=== PATIENT | male | born 1935 | race Caucasian/White ===

== ENCOUNTER 2021-07-31 20:07 | Emergency (ER) | payer MEDICARE, MEDICAID, SELFPAY ==
[2021-07-31 20:12] VITALS: BP 138/77; PULSE 109; RESP 22; TEMP 37.4; O2SAT 86; BMI 32.5
--- NOTE | 2021-07-31 20:22 | W.ED.GENADLT ---
HPI - General Adult General: Chief complaint: Urogenital-Male Stated complaint: PENILE ISSUES, CAN'T URINATE Time Seen by Provider: 07/31/21 20:11 History of Present Illness: HPI narrative: Patient is an 86-year-old male with history of diabetes not on medication presents emergency room with 3 days of urinary burning and incontinence. Call EMS was brought to the emergency room for evaluation. Patient denies any fever/chills, flank pain, abdominal pain, nausea/vomiting, hematochezia/melena, or hematuria. Onset:3 days ago Duration:3 days Location:home Severity:moderate Associated symptoms: Deny chest pain, dyspnea, nausea, rash, palpitations or vomiting Review of Systems Const: Denies: fever(s) or chills Eyes: Denies: change in vision ENMT: Denies: mouth pain Card: Denies: chest pain or palpitations Resp: Denies: dyspnea or non-productive cough GI: Denies: abdominal pain, nausea, vomiting or diarrhea : Denies: dysuria Musc: Denies: extremity pain Skin/Breast: Denies: rash or new lesions Neuro: Denies: weakness in extremities Psych: Reports: other (Normal mood) Carson/Lymph: Denies: easy bruising Physical Exam Const: COMMON NORMALS: alert HENMT: COMMON NORMALS: atraumatic HEAD & SCALP: atraumatic MOUTH: moist mucous membranes not abnormal Eye: COMMON NORMALS: EOMs intact bilaterally and conjunctivae normal CONJUNCTIVA: Yes conjunctivae normal Neck/C-Spine: COMMON NORMALS: full ROM and supple Resp: COMMON NORMALS: normal respiratory effort and clear to auscultation bilaterally AUSCULTATION: clear to auscultation bilaterally Cardio: COMMON NORMALS: regular rate RATE: regular rate GI: COMMON NORMALS: Soft to palpation and non-tender PALPATION: Yes Soft to palpation : OTHER: White pasty substance noted on the glans and foreskin. No erythema, crepitus, induration, or tenderness to palpation. No testicular tenderness to palpation. Extremity: COMMON NORMALS: full ROM Neuro: SENSORIUM/ORIENTATION: Yes alert MOTOR EXAM: No Abnormal motor strength present and Other motor observations present (no focal motor deficits) Psych: COMMON NORMALS: speech normal SPEECH: Yes normal speech MOOD & AFFECT: Yes euthymic mood Course Vital Signs: Vital signs: Vital Signs Temperature 99.4 F 07/31/21 20:12 Pulse Rate 109 H 07/31/21 20:12 Respiratory Rate 22 H 07/31/21 20:12 Blood Pressure 138/77 07/31/21 20:12 Pulse Oximetry 87 L 07/31/21 22:40 MDM - General Adult MDM Narrative: Medical decision making narrative: Patient is an 86-year-old male presents emergency room with concerns for dysuria and urinary incontinence. On exam, patient is found to have white plaques on the forehead and the penile glans consistent with possible balanoposthitits and UTI. Workup: CBC, BMP, UA/ UCX Intervention: IV ceftriaxone On reassessment, patient is noted to have a white count of 18.8. Patient received ceftriaxone for empiric coverage of UTI. Findings on physical exam is consistent with possible balanopoisthitis. Suspicion of pyelonephritis the patient does not have any flank tenderness palpation. No suspicion for necrotizing infection/Jose Angel gangrene of the groin as patient does not have any focal tenderness to palpation, crepitus, induration, fluctuance in the perineum other than penile glans and foreskin involvement. I have discussed case with Dr. Carpenter who will evaluate patient in clinic for both this week. Rx Clotrimazole 1% applied topically to glans q12hrs until resolution and cephalexin BID 500mg for UTI Patient was also noted to have be mildly hypoxemic to 87% on room air that improved to 94-95% on 2 L. I performed her home oxygen evaluation. Patient qualifies for 2 L oxygen and will be discharged home with oxygen. X-ray chest showed no focal findings. Given finding, I have given patient close follow-up with outpatient Pulmonology for further evaluation of hypoxemia. Patient denies any dyspnea at rest, chest pain, and has no shortness of breath with exertion. Covid swab pending. Patient has a pulse ox to go home with. I have given patient follow up with our classification case manager to be seen by Dr. Christie or [place] for increased oxygen requirement. Patient aware of a call from our classification case manager to schedule for appointment(s) and verbalizes understanding of the importance of following up. I have given patient follow up with our classification case manager to be seen by Dr. Carpenter. Patient aware of a call from our classification case manager to schedule for appointment(s) and verbalizes understanding of the importance of following up. Disposition: Discharge. Patient counseled regarding diagnostic impression, treatment plan. Patient given ED strict return precautions to return for continuation, worsening, or development of new symptoms. Instructed to f/u w/ PCP and Dr. Carpenter regarding symptoms today. Patient verbalized understanding. Lab Data: Labs: Lab Results 07/31/21 07/31/21 19:27 19:27 WBC 18.7 10^3/uL H 10 ^3/uL (4.0-10.0) RBC 5.60 10^6/uL H 10 ^6/uL (4.1-5.3) Hgb 16.8 g/dL H g/dL (11.7-16.6) Hct 51.4 % % (42.0-52.0) MCV 91.8 fl fl (80-94) MCH 30.0 pg pg (28.0-34.0) MCHC 32.7 g/dL g/dL (30.0-36.0) RDW 12.2 % % (12.1-15.1) Plt Count 181 10^3/cmm 10^3 /cmm (130-400) MPV 11.9 fL H fL (7.4-10.4) Neut % (Auto) 81.1 % % Lymph % (Auto) 8.5 % % [place] % (Auto) 9.5 % % Eos % (Auto) 0.1 % % Baso % (Auto) 0.3 % % Neut # (Auto) 15.20 10^3/uL H 1 0^3/uL (1.8-7.7) Lymph # (Auto) 1.6 10^3/uL 10^3/ uL (0.8-4.8) [place] # (Auto) 1.8 10^3/uL H 10^ 3/uL (0.2-0.9) Eos # (Auto) 0.0 10^3/uL 10^3/ uL (0.0-0.8) Baso # (Auto) 0.1 10^3/uL 10^3/ uL (0.0-0.1) Nucleated RBC % (a uto) 0 % % Nucleated RBCs # 0.0 /100WBC /100W BC Sodium 137 mmol/L mmol/L (136-145) Potassium 4.7 mmol/L mmol/L (3.5-5.1) Chloride 100 mmol/L mmol/L (98-107) Carbon Dioxide 23 mmol/L mmol/L (22-29) Anion Gap 18.7 (5-19) BUN 33 mg/dL H mg/dL (8-23) Creatinine 1.4 mg/dL H mg/dL (0.7-1.2) GFR Calculation Not Reportable Glucose 163 mg/dL H mg/dL (65-115) Calculated Osmolal ity 295 mOsm/kg mOsm/ kg (285-295) Calcium 8.8 mg/dL mg/dL (8.5-10.5) Imaging Data^: Other Imaging: Radiologist's impression: [facility] [id number] ReportSigned Patient: Jaky Jalloh #: [id number]: 1935cct#:[id number]/Sex: 86 / MADM Date: 07/31/21Loc: ERRoom/Bed:Attending Dr: Ordering Provider/Ordering MD: Jr Mccurdy MD Date of Service: 07/31/21 Procedure(s): XR chest 1V portable [id number] Accession Number(s): [id number] Report Number: [id number] PROCEDURE INFORMATION: Exam: XR Chest Exam date and time: 07/31/2021 10:17 PM Age: 86 years old Clinical indication: Shortness of breath; Additional info: Dyspnea TECHNIQUE: Imaging protocol: XR of the chest. Views: 1 view. COMPARISON: CR Chest 1 [place] [id number] 10/09/2018 8:01 PM FINDINGS: Lungs: Mild atelectasis in the lung bases. The lungs are otherwise clear. Pleural spaces: Small right pleural effusion. No pneumothorax. Heart/Mediastinum: Unremarkable. No cardiomegaly. Diaphragm: Stable chronic elevation of the right diaphragm. Bones/joints: Unremarkable. XR/XR chest 1V portable [id number] IMPRESSION: No acute finding. Dictated By:Padma Trevino By:Padma Trevino Date/Time:07/31/21 [id number]/ 16 Discharge Plan Discharge Patient Disposition: Home Clinical Impression: Balanoposthitis, Acute UTI Condition: Stable Prescriptions: New acetaminophen 500 mg tablet 500 mg PO Q6H PRN (Reason: pain) 5 Days Qty: 20 RF: 0 cephalexin 500 mg capsule 500 mg PO BID 7 Days Qty: 14 RF: 0 Antifungal (clotrimazole) 1 % cream 1 applic topical BID 28 Days Qty: 45 RF: 0 Discharge Orders: Discharge ED (Routine); Ordered 07/31/21 Ordered By: Jr Mccurdy Other Ambulatory Orders: DME: Oxygen (Order) Location: None Selected Ordered By: Jr Mccurdy Discharge Diet: Advance as tolerated Discharge Activity: Resume usual activity Patient Instructions: Balanitis (ED), Dysuria (ED) Activity Restrictions/Additional Instructions: Our classification case manager will have you follow-up with Dr. Carpenter in the next few days. You would be expected to have a phone call with our classification case manager who will put you on the schedule. Please take your antibiotics as instructed. Watch out for signs of skin changes/redness, mouth redeness or swelling, nausea/vomiting, diarrhea, blood in the urine or any new or concering complaints Come back to the emergency room have any fever or chills, nausea/vomiting, flank pain, worsening symptoms, or any new or concerning complaints Please return the emergency room if your pulse ox reads less than 88%. Our classification case manager will have you follow-up with pulmonology in the next few days for low oxygen. You would be expected to have a phone call with our classification case manager who will put you on the schedule. Coding Level of Care Code ED Consumer Safety Inspector for Art Ness Exam Comprehensive
[2021-07-31 20:28] LABS: Basophils # 0.1 10^3/uL (0.0-0.1); Basophils % 0.3 %; Eosinophils % 0.1 %; Hematocrit 51.4 % (42.0-52.0); Hemoglobin 16.8 g/dL (11.7-16.6); Lymphocytes # 1.6 10^3/uL (0.8-4.8); Lymphocytes % 8.5 %; Mean Corpuscular HGB Conc 32.7 g/dL (30.0-36.0); Mean Corpuscular Volume 91.8 fl (80-94); Mean Platelet Volume 11.9 fL (7.4-10.4); Monocytes # 1.8 10^3/uL (0.2-0.9); Monocytes % 9.5 %; Neutrophils % 81.1 %; Nucleated Red Blood Cells % 0 %; Platelet Count 181 10^3/cmm (130-400); Red Cell Distribution Width 12.2 % (12.1-15.1); White Blood Count 18.7 10^3/uL (4.0-10.0)
[2021-07-31] MEDS: cefTRIAXone 1,000 MG in sodium chloride 0.9% (plus) 50 ML 100 MG IV (20:43)
[2021-07-31 21:04] LABS: Anion Gap 18.7 (5-19); Blood Urea Nitrogen 33 mg/dL (8-23); Calcium 8.8 mg/dL (8.5-10.5); Carbon Dioxide 23 mmol/L (22-29); Chloride 100 mmol/L (98-107); Glucose 163 mg/dL (65-115); Osmolality Calculated 295 mOsm/kg (285-295); Potassium 4.7 mmol/L (3.5-5.1); Sodium 137 mmol/L (136-145)
--- NOTE | 2021-07-31 22:17 | XRR_ITS ---
PROCEDURE INFORMATION: Exam: XR Chest Exam date and time: 07/31/2021 10:17 PM Age: 86 years old Clinical indication: Shortness of breath; Additional info: Dyspnea TECHNIQUE: Imaging protocol: XR of the chest. Views: 1 view. COMPARISON: CR Chest 1 [place] [id number] 10/09/2018 8:01 PM FINDINGS: Lungs: Mild atelectasis in the lung bases. The lungs are otherwise clear. Pleural spaces: Small right pleural effusion. No pneumothorax. Heart/Mediastinum: Unremarkable. No cardiomegaly. Diaphragm: Stable chronic elevation of the right diaphragm. Bones/joints: Unremarkable. XR/XR chest 1V portable [id number] IMPRESSION: No acute finding.
[2021-07-31 22:30] VITALS: BP 109/66; PULSE 76; RESP 24; O2SAT 95
[2021-07-31 22:40] VITALS: O2SAT 87
[2021-07-31 23:00] VITALS: BP 124/61; O2SAT 95
[2021-07-31 23:30] VITALS: BP 119/67; O2SAT 93
[2021-08-01] VITALS: BP 140/88; O2SAT 96
[2021-08-01 01:29] LABS: Adenovirus Not Detected (NOT DETECT); Chlamydia Pneumoniae Not Detected (NOT DETECT); Coronavirus 229E,HKU1,NL63,OC4 Not Detected (NOT DETECT); Human Metapneumovirus Not Detected (NOT DETECT); Human Rhinovirus/Enterovirus Not Detected (NOT DETECT); Influenza A Not Detected (NOT DETECT); Influenza A H1 Not Detected (NOT DETECT); Influenza A H1-2009 Not Detected (NOT DETECT); Influenza A H3 Not Detected (NOT DETECT); Influenza B Not Detected (NOT DETECT); Mycoplasma Pneumoniae Not Detected (NOT DETECT); Parainfluenza Virus Type 1 Not Detected (NOT DETECT); Parainfluenza Virus Type 2 Not Detected (NOT DETECT); Parainfluenza Virus Type 3 Not Detected (NOT DETECT); Parainfluenza Virus Type 4 Not Detected (NOT DETECT); Respiratory Syncytial Virus A Not Detected (NOT DETECT); Respiratory Syncytial Virus B Not Detected (NOT DETECT); SARS-COV-2 Not Detected (NOT DETECT)
[2021-08-01 01:45] VITALS: BP 140/88; O2SAT 96
--- NOTE | 2021-08-01 06:33 | DCPLANNER ---
manager background had message to schedule a follow up appointment for patient with Dr. Carpenter. manager background emailed patients information to Frederick Bell and Julie at the office of Dr. Carpetner. Patients information will be printed and reviewed. Clinic will call patient with appointment information.
--- NOTE | 2021-08-03 08:06 | DCPLANNER ---
Addendum entered by Oneida Plata 08/24/21 11:04: Patient had a follow up appointment scheduled with Dr. Carpenter - appointment was rescheduled for 09.07.21. Original Note: Patient has a follow up appointment scheduled for Tuesday, August 17, 2021 at 11:[address] Carpenter. Clinic will call patient with appointment information.
--- NOTE | 2021-08-03 10:55 | DCPLANNER ---
Addendum entered by Oneida Plata 09/14/21 13:27: Patient had a follow up appointment scheduled with Dr. Carpenter - patient did not attend appointment. Addendum entered by Oneida Plata 09/14/21 10:16: Patient had a follow up appointment scheduled for 08.30.21 with Pulmonology - patient did not attend appointment. Original Note: assistant portfolio manager had message to schedule a follow up appointment for patient with heart care. assistant portfolio manager called [facility], spoke with Emily Benitez, gave clinic patients information. A follow up appointment was scheduled for August at 9:[address] Lawson. assistant portfolio manager called patient and gave patient the appointment information.
== END 2021-08-01 01:30 | disposition home or self-care (01) ==
PROVIDERS: Emergency Provider Emergency Medicine
DX: N47.6 Balanoposthitis (principal); N39.0 Urinary tract infection, site not specified; Z20.822 Contact with and (suspected) exposure to COVID-19
CPT/HCPCS: 71045; 80048; 85025; 87635; 96365; 99284; J0696

== ENCOUNTER 2021-08-11 19:12 | Emergency (ER) | payer MEDICARE, MEDICAID, SELFPAY ==
[2021-08-11 19:24] VITALS: BP 157/68; PULSE 94; RESP 14; TEMP 36.6; O2SAT 94; BMI 31.8
[2021-08-11 19:56] LABS: Add Urine Microscopic? NO; Charge for UA Resulting for Rev
[2021-08-11 20:06] LABS: Bilirubin Urine Neg (Negative); Blood Urine Neg (Negative); Glucose Urine UA Norm (Normal); Ketones Urine Negative (Negative); Leukocyte Esterase Urine Negative (Negative); Nitrate Urine Negative (Negative); Protein Urine Neg (Negative); Urine Appearance Clear (CLEAR); Urine Color Yellow (Yellow); Urobilinogen Urine Norm (Negative); pH Urine 6 (5-7)
--- NOTE | 2021-08-12 00:02 | W.ED.GENADLT ---
HPI - General Adult General: Chief complaint: General Medical Stated complaint: UTI/ GENERAL WEAKNESS Time Seen by Provider: 08/11/21 23:26 History of Present Illness: HPI narrative: Patient is a 86-year-old male who comes to the ED via EMS for UTI symptoms. Patient says at home he uses an electric wheelchair to get around is able to do transfers from wheelchair to bed himself. 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 For the past 11 days he has had UTI symptoms of burning when he urinates and increased urine frequency. He was seen here in the ED back on July 31 for same complaint. He was diagnosed with balanoposthitis and a UTI. He was discharged home with a prescription for cephalexin and clotrimazole cream. he had some lower oxygen levels as well and was sent him home on 2L of O2 continuously. Patient says he has not been using the oxygen at home. Patient took his prescribed meds and is still having some dysuria and increased urine frequency. He describes having to urinate sometimes multiple times in an hour. Denies any other symptoms such as generalized weakness, fever, chills, chest pain, shortness of breath, abdominal pain, nausea/vomiting, bowel symptoms or hematuria. Patient was also referred to the urologist Dr. Carpenter. Associated symptoms: Deny chest pain, dyspnea, headache(s), nausea, rash, palpitations or vomiting Review of Systems Const: Denies: fever(s), chills or fatigue Eyes: Denies: change in vision or eye discomfort ENMT: Denies: throat pain, odynophagia, nasal discharge or nasal congestion Card: Denies: chest pain, palpitations, edema, swelling of feet/ankles, dyspnea on exertion or orthopnea Resp: Denies: dyspnea, productive cough or non-productive cough GI: Denies: abdominal pain, nausea, vomiting, diarrhea, constipation or hematochezia : Reports: dysuria (Burning pain when urinating) and urinary frequency; Denies: flank pain, difficulty urinating or hematuria Musc: Denies: neck pain, back pain or extremity swelling Skin/Breast: Denies: rash or new lesions Neuro: Denies: headache(s), numbness in extremities or weakness in extremities PFS ED PFSH: Medical History Hypoxemia No pertinent family history On home oxygen therapy Physical Exam Const: COMMON NORMALS: no acute distress, patient oriented x3 and alert GENERAL APPEARANCE: cooperative and comfortable HENMT: COMMON NORMALS: normocephalic HEAD & SCALP: normocephalic MOUTH: Normal oral and palatal mucosa present THROAT: posterior oropharynx normal and uvula midline Neck/C-Spine: COMMON NORMALS: supple GENERAL: Yes normal visual inspection Resp: COMMON NORMALS: normal respiratory effort, No retractions, No use of accessory muscles and clear to auscultation bilaterally AUSCULTATION: clear to auscultation bilaterally Cardio: COMMON NORMALS: regular rate, regular rhythm, S1 normal heart sound present, S2 normal heart sound present, No gallops present (Cardio), No clicks present (Cardio), No murmurs present (Cardio) and Peripheral pulses 2+ throughout RATE: regular rate RHYTHM: regular rhythm HEART SOUNDS: S1 normal heart sound present and S2 normal heart sound present PERIPHERAL PULSES: Peripheral pulses 2+ throughout GI: COMMON NORMALS: Normal to inspection, nondistended, normoactive bowel sounds present, Soft to palpation, non-tender and no masses PALPATION: Yes Soft to palpation : COMMON NORMALS: Yes no CVA tenderness BLADDER/KIDNEY EXAM: Yes no CVA tenderness Back/Pelvis: COMMON NORMALS: no CVA tenderness Extremity: COMMON NORMALS: normal to inspection Neuro: COMMON NORMALS: patient oriented x3 and moves all extremities SENSORIUM/ORIENTATION: Yes alert Skin: GENERAL SKIN EXAM: dry skin Course ED course: While I was in the room with patient and discussing discharge plans his oxygen level was around 90 to 91% on room air. I asked him about the oxygen he was sent home with from the ED back on July 31. Patient says he has not been using the home O2. I highly encourage patient to wear the 2 L of O2 continuously as previously prescribed at home. I told him of some of the risk if he does not wear his oxygen. Patient understood and said he he would start trying to wear his at home oxygen. Vital Signs: Vital signs: Vital Signs Temperature 97.8 F 08/11/21 19:24 Pulse Rate 100 08/12/21 01:48 Respiratory Rate 18 08/12/21 01:48 Blood Pressure 145/87 08/12/21 01:48 Pulse Oximetry 91 08/12/21 01:48 While I was in the room with patient and discussing discharge plans his oxygen level was around 90 to 91% on room air. MDM - General Adult MDM Narrative: Medical decision making narrative: Patient is an 86-year-old male who comes to the ED with increased urine frequency. He was seen here in the ED back on July 31 for same complaint and was diagnosed with a UTI and put on cephalexin. Patient says he still having the increased urine frequency and some dysuria. Patient states he was also sent home on 2 L of oxygen continuously when discharged from the ED back on July 31 but states he has not been using his home oxygen. I stressed with patient the importance of wearing his prescribed home oxygen and the associated risks with not wearing it. Patient says he will try to wear the oxygen when he gets home. His vitals are stable and his O2 sat was around 90 to 91% on room air here in the ED. Exam was benign. CBC and CMP were unremarkable. UA showed no signs of blood or any infection. A referral was placed back on July 31 for patient to be seen by Dr. Carpenter. Currently they are trying to get appointment set up. Patient diagnosed with increased urinary frequency and hypoxemia. I stressed with patient again the importance of using his oxygen as previously prescribed at home. Return to ED precautions given. Patient understood and agree with plan. Lab Data: Attestation: I reviewed the patient's lab results. Labs: Lab Results 08/11/21 08/12/21 08/12/21 19:32 00:50 00:50 WBC 9.9 10^3/uL 10^3/ uL (4.0-10.0) RBC 5.83 10^6/uL H 10 ^6/uL (4.1-5.3) Hgb 17.3 g/dL H g/dL (11.7-16.6) Hct 52.6 % H % (42.0-52.0) MCV 90.2 fl fl (80-94) MCH 29.7 pg pg (28.0-34.0) MCHC 32.9 g/dL g/dL (30.0-36.0) RDW 12.4 % % (12.1-15.1) Plt Count 221 10^3/cmm 10^3 /cmm (130-400) MPV 10.5 fL H fL (7.4-10.4) Neut % (Auto) 71.0 % % Lymph % (Auto) 19.2 % % [place] % (Auto) 7.0 % % Eos % (Auto) 1.4 % % Baso % (Auto) 0.7 % % Neut # (Auto) 7.04 10^3/uL 10^3 /uL (1.8-7.7) Lymph # (Auto) 1.9 10^3/uL 10^3/ uL (0.8-4.8) [place] # (Auto) 0.7 10^3/uL 10^3/ uL (0.2-0.9) Eos # (Auto) 0.1 10^3/uL 10^3/ uL (0.0-0.8) Baso # (Auto) 0.1 10^3/uL 10^3/ uL (0.0-0.1) Nucleated RBC % (a uto) 0 % % Nucleated RBCs # 0.0 /100WBC /100W BC Sodium 139 mmol/L mmol/L (136-145) Potassium 4.3 mmol/L mmol/L (3.5-5.1) Chloride 103 mmol/L mmol/L (98-107) Carbon Dioxide 23 mmol/L mmol/L (22-29) Anion Gap 17.3 (5-19) BUN 27 mg/dL H mg/dL (8-23) Creatinine 1.0 mg/dL mg/dL (0.7-1.2) GFR Calculation Not Reportable Glucose 132 mg/dL H mg/dL (65-115) Calculated Osmolal ity 295 mOsm/kg mOsm/ kg (285-295) Calcium 8.9 mg/dL mg/dL (8.5-10.5) Total Bilirubin 0.4 mg/dL mg/dL (0.15-1.2) AST 20 U/L U/L (0-40) ALT 27 U/L U/L (0-41) Alkaline Phosphata se 95 IU/L IU/L (40-130) Total Protein 7.1 g/dL g/dL (6.6-8.7) Albumin 4.2 g/dL g/dL (3.5-5.2) Globulin 2.9 g/dL g/dL (1.3-4.6) Urine Color Yellow (Yellow) Urine Appearance Clear (CLEAR) Urine pH 6 (5-7) Ur Specific Gravit y 1.010 (1.005-1.030) Urine Protein Neg (Negative) Urine Glucose (UA) Norm (Normal) Urine Ketones Negative (Negative) Urine Blood Neg (Negative) Urine Nitrate Negative (Negative) Urine Bilirubin Neg (Negative) Urine Urobilinogen Norm mg/dL mg/dL (Negative) Ur Leukocyte Ayse ase Negative (Negative) Discharge Plan Discharge Patient Disposition: Home Clinical Impression: Increased urinary frequency, Hypoxemia Condition: Stable Prescriptions: No Action Antifungal (clotrimazole) 1 % cream 1 applic topical BID 28 Days Qty: 45 RF: 0 Discharge Orders: Discharge ED (Routine); Ordered 08/12/21 Ordered By: Capo O[place] Referrals: Vitor Carpenter MD [Primary Care Provider] - Discharge Diet: Regular Discharge Activity: Resume usual activity Patient Instructions: Using Oxygen at Home (ED), Hypoxemia (DC), Urinary Urgency and Frequency (DC) Activity Restrictions/Additional Instructions: Follow-up with medical provider as directed. Case management should be contacting you in the next several days to get you set up with an appointment with Dr. Carpenter the urologist. Continue taking all previously prescribed medications. Use your at home oxygen as previously prescribed at 2 L continuously. Return to the ER or your medical provider if condition worsens. Please read and understand discharge instructions. Thank you for choosing [facility] for your healthcare needs today. Please realize this is an emergency room and that we are providing you with a medical screening exam and this may not be complete and all inclusive of all the testing and or work up that you may need to determine your ailment or severity of your illness. It is very important that you follow up as instructed or that you return to the Emergency Department should you have concerns or if your condition changes or worsens in any way. Coding Level of Care Code ED Field Education Director for Art Fwlibia Exam Comprehensive
[2021-08-12 00:09] VITALS: BP 144/75; PULSE 97; RESP 17; O2SAT 93
[2021-08-12 01:14] LABS: Basophils # 0.1 10^3/uL (0.0-0.1); Basophils % 0.7 %; Eosinophils # 0.1 10^3/uL (0.0-0.8); Eosinophils % 1.4 %; Hematocrit 52.6 % (42.0-52.0); Hemoglobin 17.3 g/dL (11.7-16.6); Lymphocytes # 1.9 10^3/uL (0.8-4.8); Lymphocytes % 19.2 %; Mean Corpuscular HGB Conc 32.9 g/dL (30.0-36.0); Mean Corpuscular Hemoglobin 29.7 pg (28.0-34.0); Mean Corpuscular Volume 90.2 fl (80-94); Mean Platelet Volume 10.5 fL (7.4-10.4); Monocytes # 0.7 10^3/uL (0.2-0.9); Neutrophils # 7.04 10^3/uL (1.8-7.7); Nucleated Red Blood Cells % 0 %; Platelet Count 221 10^3/cmm (130-400); Red Blood Count 5.83 10^6/uL (4.1-5.3); Red Cell Distribution Width 12.4 % (12.1-15.1); White Blood Count 9.9 10^3/uL (4.0-10.0)
[2021-08-12 01:37] LABS: Alanine Aminotransferase 27 U/L (0-41); Albumin Level 4.2 g/dL (3.5-5.2); Alkaline Phosphatase 95 IU/L (40-130); Anion Gap 17.3 (5-19); Aspartate Amino Transferase 20 U/L (0-40); Blood Urea Nitrogen 27 mg/dL (8-23); Calcium 8.9 mg/dL (8.5-10.5); Carbon Dioxide 23 mmol/L (22-29); Chloride 103 mmol/L (98-107); Globulin 2.9 g/dL (1.3-4.6); Glucose 132 mg/dL (65-115); Osmolality Calculated 295 mOsm/kg (285-295); Potassium 4.3 mmol/L (3.5-5.1); Sodium 139 mmol/L (136-145); Total Bilirubin 0.4 mg/dL (0.15-1.2); Total Protein 7.1 g/dL (6.6-8.7)
[2021-08-12 01:48] VITALS: BP 145/87; PULSE 100; RESP 18; O2SAT 91
[2021-08-12 03:09] VITALS: BP 158/96; PULSE 98; RESP 20; O2SAT 92
--- NOTE | 2021-08-12 15:25 | DCPLANNER ---
Addendum entered by Oneida Plata 08/16/21 12:41: Patient has an appointment scheduled with Dr. Carpenter, from a previous referral from the ED. Original Note: construction site manager had message to schedule a follow up appointment for patient with Dr. Carpenter. construction site manager emailed patients information to Frederick Bell and Julie. Patients information will be printed and reviewed. Clinic will call patient with appointment information.
== END 2021-08-12 03:13 | disposition home or self-care (01) ==
PROVIDERS: Emergency Medicine; Emergency Provider Physician Assistant; PCP Urology
DX: R35.0 Frequency of micturition (principal); R09.02 Hypoxemia; Z87.440 Personal history of urinary (tract) infections
CPT/HCPCS: 80053; 81003; 85025; 99283

== ENCOUNTER 2021-08-20 22:37 | Inpatient (IN) | payer MEDICARE, MEDICAID, SELFPAY ==
[2021-08-20 22:53] VITALS: BP 97/58; PULSE 82; RESP 18; TEMP 36.7; O2SAT 90; BMI 30.3
[2021-08-21 00:08] LABS: Add Urine Culture? Yes; Add Urine Microscopic? YES; Bacteria Urine 3+ /hpf; Bilirubin Urine Neg (Negative); Blood Urine 3+ (Negative); Glucose Urine UA Norm (Normal); Ketones Urine Negative (Negative); Leukocyte Esterase Urine 2+ (Negative); Nitrate Urine Negative (Negative); Protein Urine 2+ (Negative); RBC Urine 0-4 /hpf (0-2); Squamous Epithelial Cell Urine 0-4 /hpf (0-5); Urine Appearance Hazy (CLEAR); Urine Color Yellow (Yellow); Urobilinogen Urine Norm (Negative); WBC Urine TOO NUMEROUS TO CNT /hpf (0-5); pH Urine 5 (5-7)
--- NOTE | 2021-08-21 01:55 | ED_ITS ---
Documented by User: PHUONG Teixeira 08/22/21 11:07 HPI - Male Genitourinary General: Chief complaint: ER Hold Stated complaint: URINE PROBLEM Time Seen by Provider: 08/21/21 01:54 History of Present Illness: Patient is an 86-year-old male who comes to the ED with urinary retention. Patient was seen here in the ED for complaints of a UTI back on July 31 and on August [id number]. He has been taking an antibiotic as prescribed. Says over the last couple days he is having trouble urinating. He says he is only able to get out a little bit of urine, but he feels like he still has more urine to get out. Today he says his bladder feels full and he is only able to urinate out a small amount. He said he still having some pain when he urinates along with some blood that is visible in his urine as well. Patient says he has an appointment to see Dr. Carpenter on September 07. Patient lives in an apartment by himself and he has a home health aide that comes out 3 times a week. He is supposed to be on oxygen at home and has oxygen supplies at home but is not been compliant in wearing it. Associated symptoms: Reports dysuria and hematuria; Deny nausea or vomiting Review of Systems Const: Denies: fever(s), chills or fatigue Eyes: Denies: change in vision or eye discomfort ENMT: Denies: throat pain, odynophagia, nasal discharge or nasal congestion Card: Denies: chest pain, palpitations, edema, swelling of feet/ankles, dyspnea on exertion or orthopnea Resp: Denies: dyspnea, productive cough or non-productive cough GI: Denies: abdominal pain, nausea, vomiting, diarrhea, constipation or hematochezia : Reports: difficulty urinating, dysuria, oliguria and hematuria; Denies: flank pain Musc: Denies: neck pain, back pain or extremity swelling Skin/Breast: Denies: rash or new lesions Neuro: Denies: headache(s) PFSH ED 2 PFSH: Medical History Acute right-sided weakness BPH (benign prostatic hyperplasia) CVA (cerebral vascular accident) History of diet-controlled diabetes History of DVT (deep vein thrombosis) Hypertension Hypoxemia No pertinent family history On home oxygen therapy Surgical History History of angioplasty Family History Father Parkinson's disease Mother Old age Social History Smoking and tobacco status: never smoked Alcohol intake: never Substance/Drug Use: never Physical Exam Const: COMMON NORMALS: no acute distress, patient oriented x3 and alert GENERAL APPEARANCE: cooperative HENMT: COMMON NORMALS: normocephalic HEAD & SCALP: normocephalic MOUTH: Normal oral and palatal mucosa present THROAT: posterior oropharynx normal and uvula midline Neck/C-Spine: COMMON NORMALS: supple GENERAL: Yes normal visual inspection Resp: COMMON NORMALS: normal respiratory effort, No retractions, No use of accessory muscles and clear to auscultation bilaterally AUSCULTATION: clear to auscultation bilaterally Cardio: COMMON NORMALS: regular rate, regular rhythm, S1 normal heart sound present, S2 normal heart sound present, No gallops present (Cardio), No clicks present (Cardio), No murmurs present (Cardio) and Peripheral pulses 2+ throughout RATE: regular rate RHYTHM: regular rhythm HEART SOUNDS: S1 normal heart sound present and S2 normal heart sound present PERIPHERAL PULSES: Peripheral pulses 2+ throughout GI: COMMON NORMALS: Normal to inspection, nondistended, normoactive bowel sounds present, Soft to palpation, non-tender and no masses PALPATION: Yes Soft to palpation and Yes Bladder palpation abnormal : COMMON NORMALS: Yes no CVA tenderness BLADDER/KIDNEY EXAM: Yes no CVA tenderness and Yes Bladder palpation abnormal Bladder abnormal details: tender and distended midway to the umbilicus Back/Pelvis: COMMON NORMALS: no CVA tenderness Extremity: COMMON NORMALS: normal to inspection Neuro: COMMON NORMALS: patient oriented x3 SENSORIUM/ORIENTATION: Yes alert GAIT: Yes Normal gait present Skin: GENERAL SKIN EXAM: dry skin Course ED course: Nurse performed a bladder scan and then inserted a Lin cath and patient and over 700 mL of urine came out. Consultations: Consultation #1: I contacted Dr. Roa total of about patient case. He recommended I do a CT of the abdomen pelvis without IV contrast and to start him on some Zosyn here in the ED. Patient will be admitted. Vital Signs: Vital signs: Vital Signs Temperature 98.7 F 08/22/21 07:43 Pulse Rate 102 H 08/22/21 07:43 Respiratory Rate 15 08/22/21 07:43 Blood Pressure 166/90 08/22/21 07:43 Pulse Oximetry 94 08/22/21 07:43 MDM - Male Medical Decision Making Patient is an 86-year-old male who comes to the ED with urinary retention. Patient was seen here in the ED back on July 31 and August 11 with complaints of a UTI. Over the past couple days patient is complaining of having urinary retention. Says his bladder feels full when he is only able to urinate a little bit. He still has dysuria, hematuria. He took his full course of antibiotics as prescribed. Patient lives in an apartment by himself and he has a home health aide that comes out 3 times a week. He is supposed to be on oxygen at home and has oxygen supplies at home but is not been compliant in wearing it. Patient is on 3 L of O2 here in the ED and is saturation level is around 94 to 95%. Rest of his vitals are stable. Exam of patient shows some palpable bladder tenderness and distention. White blood cell count 11.8 and creatinine level 1.9. His creatinine level back on August 11 was 1.0. UA showed a lot of white blood cells some red blood cells and a lot of bacteria. Lin catheter was performed and over 700 mL of urine came out. Urine contained a lot of thick white pus as well. I talked with Dr. Wilson about patient case an d he agreed that patient should be admitted. I contacted Dr. Roa and told him about patient case. He wanted me to order a CT abdomen pelvis without IV contrast and to start patient on Zosyn. Blood cultures and lactic are pending. Lab Data : 08/22/21 04:56 08/22/21 04:56 Radiology Impressions Abdomen/Pelvis CT 08/21/21 03:52 IMPRESSION: 1. Mild left hydronephrosis, without associated urolithiasis. 2. Lin catheter in the decompressed bladder with bladder wall thickening and infiltration of perivesicular fat. 3. Additional findings as described above. COMMENTS: Consistent with the [employer]'s Incidental Findings Committee white paper (J Am Niraj Radiol 2018): Any incidental renal lesion less than 1 cm or classified as too small to characterize, or any incidental cystic renal lesion characterized as simple-appearing, is likely benign. No follow-up imaging is recommended for these lesions per consensus recommendations based on imaging criteria. Chest X-Ray 08/21/21 12:26 IMPRESSION: Stable abnormal chest without acute abnormality. Laboratory Results WBC 11.8 10^3/uL (4.0-10.0) H 08/21/21 03:16 RBC 5.18 10^6/uL (4.1-5.3) 08/21/21 03:16 Hgb 15.4 g/dL (11.7-16.6) 08/21/21 03:16 Hct 48.0 % (42.0-52.0) 08/21/21 03:16 MCV 92.7 fl (80-94) 08/21/21 03:16 MCH 29.7 pg (28.0-34.0) 08/21/21 03:16 MCHC 32.1 g/dL (30.0-36.0) 08/21/21 03:16 RDW 12.8 % (12.1-15.1) 08/21/21 03:16 Plt Count 199 10^3/cmm (130-400) 08/21/21 03:16 MPV 11.1 fL (7.4-10.4) H 08/21/21 03:16 Neut % (Auto) 73.2 % 08/21/21 03:16 Lymph % (Auto) 14.0 % 08/21/21 03:16 [place] % (Auto) 10.6 % 08/21/21 03:16 Eos % (Auto) 1.2 % 08/21/21 03:16 Baso % (Auto) 0.4 % 08/21/21 03:16 Neut # (Auto) 8.61 10^3/uL (1.8-7.7) H 08/21/21 03:16 Lymph # (Auto) 1.6 10^3/uL (0.8-4.8) 08/21/21 03:16 [place] # (Auto) 1.2 10^3/uL (0.2-0.9) H 08/21/21 03:16 Eos # (Auto) 0.1 10^3/uL (0.0-0.8) 08/21/21 03:16 Baso # (Auto) 0.1 10^3/uL (0.0-0.1) 08/21/21 03:16 Nucleated RBC % (auto) 0 % 08/21/21 03:16 Nucleated RBCs # 0.0 /100WBC 08/21/21 03:16 Sodium 133 mmol/L (136-145) L 08/21/21 03:16 Potassium 4.3 mmol/L (3.5-5.1) 08/21/21 03:16 Chloride 98 mmol/L (98-107) 08/21/21 03:16 Carbon Dioxide 24 mmol/L (22-29) 08/21/21 03:16 Anion Gap 15.3 (5-19) 08/21/21 03:16 BUN 33 mg/dL (8-23) H 08/21/21 03:16 Creatinine 1.9 mg/dL (0.7-1.2) H 08/21/21 03:16 GFR Calculation Not Reportable 08/21/21 03:16 Glucose 131 mg/dL (65-115) H 08/21/21 03:16 Estimat Average Glucose 143 08/21/21 03:16 Hemoglobin A1c 6.6 % (4.0-6.0) H 08/21/21 03:16 Calculated Osmolality 285 mOsm/kg (285-295) 08/21/21 03:16 Lactic Acid 1.0 mmol/L (0.5-2.2) 08/21/21 04:13 Calcium 8.8 mg/dL (8.5-10.5) 08/21/21 03:16 Total Bilirubin 0.6 mg/dL (0.15-1.2) 08/21/21 03:16 AST 15 U/L (0-40) 08/21/21 03:16 ALT 13 U/L (0-41) 08/21/21 03:16 Alkaline Phosphatase 92 IU/L (40-130) 08/21/21 03:16 Total Protein 7.2 g/dL (6.6-8.7) 08/21/21 03:16 Albumin 3.9 g/dL (3.5-5.2) 08/21/21 03:16 Globulin 3.3 g/dL (1.3-4.6) 08/21/21 03:16 Procalcitonin 0.19 ng/mL (0-0.5) 08/21/21 03:16 Urine Color Yellow (Yellow) 08/20/21 23:48 Urine Appearance Hazy (CLEAR) A 08/20/21 23:48 Urine pH 5 (5-7) 08/20/21 23:48 Ur Specific [place] 1.020 (1.005-1.030) 08/20/21 23:48 Urine Protein 2+ (Negative) H 08/20/21 23:48 Urine Glucose (UA) Norm (Normal) 08/20/21 23:48 Urine Ketones Negative (Negative) 08/20/21 23:48 Urine Blood 3+ (Negative) H 08/20/21 23:48 Urine Nitrate Negative (Negative) 08/20/21 23:48 Urine Bilirubin Neg (Negative) 08/20/21 23:48 Urine Urobilinogen Norm mg/dL (Negative) 08/20/21 23:48 Ur Leukocyte Esterase 2+ (Negative) H 08/20/21 23:48 Urine RBC 0-4 /hpf (0-2) H 08/20/21 23:48 Urine WBC Too numerous to cnt /hpf (0-5) H 08/20/21 23:48 Ur Squamous Epith Cells 0-4 /hpf (0-5) H 08/20/21 23:48 Amorphous Sediment Not Reportable 08/20/21 23:48 Urine Bacteria 3+ /hpf (NONE) H 08/20/21 23:48 Discharge Plan Discharge Patient Disposition: Admitted As Inpatient Admit Provider: Will Roa Clinical Impression: Acute retention of urine Condition: Stable Coding Level of Care Code ED Community Director for Chg Fwd Exam Comprehensive Documented by User: Stuart Wilson MD 08/21/21 04:39 HPI - Male Genitourinary General: Chief complaint: ER Hold Stated complaint: URINE PROBLEM Time Seen by Provider: 08/21/21 01:54 [facility] ED PFS: Medical History Acute right-sided weakness BPH (benign prostatic hyperplasia) CVA (cerebral vascular accident) History of diet-controlled diabetes History of DVT (deep vein thrombosis) Hypertension Hypoxemia No pertinent family history On home oxygen therapy Surgical History History of angioplasty Family History Father Parkinson's disease Mother Old age Social History Smoking and tobacco status: never smoked Alcohol intake: never Substance/Drug Use: never Course Vital Signs: Vital signs: Vital Signs Temperature 98.7 F 08/22/21 07:43 Pulse Rate 102 H 08/22/21 07:43 Respiratory Rate 15 08/22/21 07:43 Blood Pressure 166/90 08/22/21 07:43 Pulse Oximetry 94 08/22/21 07:43 MDM - Male Medical Decision Making Patient is an 86-year-old male who comes to the ED with urinary retention. Patient was seen here in the ED back on July 31 and August 11 with complaints of a UTI. Over the past couple days patient is complaining of having urinary retention. Says his bladder feels full when he is only able to urinate a little bit. He still has dysuria, hematuria. He took his full course of antibiotics as prescribed. Patient lives in an apartment by himself and he has a home health aide that comes out 3 times a week. He is supposed to be on oxygen at home and has oxygen supplies at home but is not been compliant in wearing it. Patient is on 3 L of O2 here in the ED and is saturation level is around 94 to 95%. Rest of his vitals are stable. Exam of patient shows some palpable bladder tenderness and distention. White blood cell count 11.8 and creatinine level 1.9. His creatinine level back on August 11 was 1.0. UA jose f wed a lot of white blood cells some red blood cells and a lot of bacteria. Lin catheter was performed and over 700 mL of urine came out. Urine contained a lot of thick white pus as well. I talked with Dr. Steve about patient case and he agreed that patient should be admitted. I contacted Dr. Roa and told him about patient case. He wanted me to order a CT abdomen pelvis without IV contrast and to start patient on Zosyn. Blood cultures and lactic are pending. I saw patient with above midlevel patient has urinary retention with acute cystitis did have pus in his urine as well. Does have an elevated white cell count patient started on IV Zosyn also spoke to Dr. Roa who is admitting. Patient's blood pressure here been stable no signs of sepsis Lab Data : 08/22/21 04:56 08/22/21 04:56 Radiology Impressions Abdomen/Pelvis CT 08/21/21 03:52 IMPRESSION: 1. Mild left hydronephrosis, without associated urolithiasis. 2. Lin catheter in the decompressed bladder with bladder wall thickening and infiltration of perivesicular fat. 3. Additional findings as described above. COMMENTS: Consistent with the [employer]'s Incidental Findings Committee white paper (J Am Niraj Radiol 2018): Any incidental renal lesion less than 1 cm or classified as too small to characterize, or any incidental cystic renal lesion characterized as simple-appearing, is likely benign. No follow-up imaging is recommended for these lesions per consensus recommendations based on imaging criteria. Chest X-Ray 08/21/21 12:26
[2021-08-21 03:20] LABS: Basophils # 0.1 10^3/uL (0.0-0.1); Basophils % 0.4 %; Eosinophils # 0.1 10^3/uL (0.0-0.8); Eosinophils % 1.2 %; Hemoglobin 15.4 g/dL (11.7-16.6); Lymphocytes # 1.6 10^3/uL (0.8-4.8); Mean Corpuscular HGB Conc 32.1 g/dL (30.0-36.0); Mean Corpuscular Hemoglobin 29.7 pg (28.0-34.0); Mean Corpuscular Volume 92.7 fl (80-94); Mean Platelet Volume 11.1 fL (7.4-10.4); Monocytes # 1.2 10^3/uL (0.2-0.9); Monocytes % 10.6 %; Neutrophils # 8.61 10^3/uL (1.8-7.7); Neutrophils % 73.2 %; Nucleated Red Blood Cells % 0 %; Platelet Count 199 10^3/cmm (130-400); Red Blood Count 5.18 10^6/uL (4.1-5.3); Red Cell Distribution Width 12.8 % (12.1-15.1); White Blood Count 11.8 10^3/uL (4.0-10.0)
[2021-08-21] MEDS: sodium chloride 0.9% 500 ML 999 ML IV (03:37)
[2021-08-21 03:40] LABS: Alanine Aminotransferase 13 U/L (0-41); Albumin Level 3.9 g/dL (3.5-5.2); Alkaline Phosphatase 92 IU/L (40-130); Anion Gap 15.3 (5-19); Aspartate Amino Transferase 15 U/L (0-40); Blood Urea Nitrogen 33 mg/dL (8-23); Calcium 8.8 mg/dL (8.5-10.5); Carbon Dioxide 24 mmol/L (22-29); Chloride 98 mmol/L (98-107); Globulin 3.3 g/dL (1.3-4.6); Glucose 131 mg/dL (65-115); Osmolality Calculated 285 mOsm/kg (285-295); Potassium 4.3 mmol/L (3.5-5.1); Sodium 133 mmol/L (136-145); Total Bilirubin 0.6 mg/dL (0.15-1.2); Total Protein 7.2 g/dL (6.6-8.7)
--- NOTE | 2021-08-21 03:52 | CTR_ITS ---
PROCEDURE INFORMATION: Exam: CT Abdomen And Pelvis Without Contrast Exam date and time: 08/21/2021 3:52 AM Age: 86 years old Clinical indication: Other: Urinary retention TECHNIQUE: Imaging protocol: Computed tomography of the abdomen and pelvis without contrast. Radiation optimization: All CT scans at this facility use at least one of these dose optimization techniques: automated exposure control; mA and/or kV adjustment per patient size (includes targeted exams where dose is matched to clinical indication); or iterative reconstruction. COMPARISON: None RADIATION DOSE METRICS: Total DLP (mGy-cm): 1511.18 FINDINGS: Detailed evaluation of the abdominal and pelvic viscera is somewhat limited in the absence of intravenous contrast. Inferior thorax: Interstitial prominence, dependent airspace disease, and chronic granulomatous disease. Mild pleural thickening. Asymmetric elevation of the right hemidiaphragm. Liver: No focal hepatic mass. Gallbladder and bile ducts: Dilated gallbladder, without biliary ductal dilatation. Pancreas: No pancreatic mass or ductal dilatation. Spleen: Splenic granulomata. Adrenal glands: Unremarkable adrenals. Kidneys and ureters: Bilateral renal nodular hypodense lesions including a 1.7 cm right upper pole cyst and 1.8 cm nodular lesion arising from the posterior left kidney which does not fulfill CT criteria for a simple cyst. Mild left hydronephrosis, without associated urolithiasis. Stomach and bowel: No significant small bowel dilatation. Prominent stool and diverticula, without pericolonic inflammation. Appendix: No acute appendicitis. Intraperitoneal space: No significant free fluid. Vasculature: Prominent vascular calcification. No abdominal aortic aneurysm. Lymph nodes: Subcentimeter lymph nodes. Urinary bladder: Lin catheter in the decompressed bladder with bladder wall thickening and infiltration of perivesicular fat. Reproductive: Punctate prostate calcifications. Bones/joints: Degenerative change, disc bulging, and mild scoliosis. Soft tissues: Laxity of the anterior abdominal wall musculature in the midline. Small inguinal hernias. CT/CT abdomen pelvis wo con [id number] IMPRESSION: 1. Mild left hydronephrosis, without associated urolithiasis. 2. Lin catheter in the decompressed bladder with bladder wall thickening and infiltration of perivesicular fat. 3. Additional findings as described above. COMMENTS: Consistent with the [employer]'s Incidental Findings Committee white paper (J Am Niraj Radiol 2018): Any incidental renal lesion less than 1 cm or classified as too small to characterize, or any incidental cystic renal lesion characterized as simple-appearing, is likely benign. No follow-up imaging is recommended for these lesions per consensus recommendations based on imaging criteria.
[2021-08-21] MEDS: piperacillin-tazobactam 3.375 GM in sodium chloride 0.9% (plus) 50 ML IV ×3 (04:23→17:44)
[2021-08-21 05:00] VITALS: BP 113/58; PULSE 67; RESP 18; O2SAT 94
[2021-08-21 06:46] VITALS: BP 120/71; PULSE 91; RESP 18; O2SAT 93
[2021-08-21 08:06] LABS: Procalcitonin 0.19 ng/mL (0-0.5)
[2021-08-21 08:22] LABS: Lactic Sepsis W/Reflex 1.1 mmol/L (0.5-2.2)
[2021-08-21 09:00] VITALS: BP 134/75; PULSE 84; RESP 18; TEMP 36.7; O2SAT 94
--- NOTE | 2021-08-21 10:09 | PC.NURSE ---
patient arrived on unit from ER
[2021-08-21] MEDS: sodium chloride 0.9% 1,000 ML 75 ML IV ×2 (11:31→20:39)
[2021-08-21] MEDS: enoxaparin 30 mg/0.3 mL Syringe SUBCUT (11:32)
[2021-08-21 11:52] VITALS: BP 132/75; PULSE 84; RESP 16; TEMP 36.9; O2SAT 94
--- NOTE | 2021-08-21 12:18 | PM.HP ---
Providers/Chief Complaint Admitting Physician: Will Roa MD Primary Care Provider: Vitor Carpenter MD Chief Complaint: URINE PROBLEM History of Present Illness Pablo Jalloh is a 86 year old male with a past medical history of CAD status post stenting x1, history of 5 CVAs, residual right-sided weakness, uses a walker, has assistance at home, hypertension, history of DVT has been on Coumadin and IVC filter in the past, diet-controlled diabetes, BPH, who presents [facility] due to dysuria, and inability to urinate. Patient tells me that yesterday evening, he was experiencing burning with urination, but he tells me all of a sudden he stopped urinating, it was difficult for him to urinate, denies any history of nephrolithiasis, no flank pain, no fevers, chills, nausea, vomiting, does have pain above his bladder. Denies any issues with his prostate in the past, is not on any prostate medications. In the emergency room patient was found to have ESDRAS creatinine 1.9, UTI, with mild hydronephrosis seen on CT scan with urinary retention, Lin catheter was placed this improved his symptoms. Hospitalist team was called for admission for ESDRAS, UTI, hydronephrosis, urinary retention. Review of Systems Const: Denies: fever(s) or chills Eyes: Denies: change in vision or blurry vision ENMT: Denies: nasal congestion Card: Denies: chest pain, palpitations or syncope Resp: Denies: dyspnea, productive cough, non-productive cough or wheezing GI: Reports: abdominal pain; Denies: nausea, vomiting, hematemesis, diarrhea, constipation, hematochezia or melena : Reports: difficulty urinating, dysuria, urinary frequency and urinary urgency; Denies: flank pain Musc: Denies: neck pain or back pain Skin/Breast: Denies: rash Neuro: Denies: headache(s) or dizziness Psych: Denies: anxiety or depression Endo: Denies: polydipsia Medications/Allergies Home Medications Medication Instructions Recorded Confirmed Last Taken Type clotrimazole 1 % topical cream 1 applic TOPICAL BID 28 Days #45 g 07/31/21 08/21/21 Unknown Rx (Antifungal (clotrimazole)) amlodipine 10 mg tablet 10 mg PO DAILY 08/21/21 08/21/21 08/20/21 History atorvastatin 10 mg tablet 10 mg PO DAILY 08/21/21 08/21/21 Unknown History furosemide 20 mg tablet 20 mg PO DAILY 08/21/21 08/21/21 08/20/21 History lisinopril 40 mg tablet 40 mg PO DAILY 08/21/21 08/21/21 08/20/21 History omeprazole 20 mg capsule,delayed 20 mg PO DAILY 08/21/21 08/21/21 08/21/21 07:00 History release trazodone 50 mg tablet 50 mg PO BEDTIME 08/21/21 08/21/21 Unknown History Allergies Allergy/AdvReac Type Severity Reaction Status Date / Time No Known Allergies Allergy Unverified 08/01/21 07:41 PFSH Acute PFSH: Medical History (Updated 08/21/21 @ 12:26 by Nico Phipps MD) Acute right-sided weakness BPH (benign prostatic hyperplasia) CVA (cerebral vascular accident) History of diet-controlled diabetes History of DVT (deep vein thrombosis) Hypertension Hypoxemia No pertinent family history On home oxygen therapy Surgical History (Updated 08/21/21 @ 12:23 by Nico Phipps MD) History of angioplasty Family History (Updated 08/21/21 @ 12:24 by Nico Phipps MD) Father Parkinson's disease Mother Old age Social History (Updated 08/21/21 @ 12:24 by Nico Phipps MD) Smoking and tobacco status: never smoked Alcohol intake: never Substance/Drug Use: never Vitals/I&O/Wt Last Vital Signs Temp 98.4 F 08/21/21 11:52 Pulse 84 08/21/21 11:52 Resp 16 08/21/21 11:52 BP 132/75 08/21/21 11:52 Pulse Ox 94 08/21/21 11:52 08/20/21 08/21/21 08/21/21 22:59 06:59 14:59 Intake Total 550 / 550 Output Total 1350 / 1350 Balance 550 / 550 -1350 / -1350 Weight last 48 hrs Weight 102.512 kg Weight 104.326 kg Physical Exam Const: COMMON NORMALS: no acute distress and patient oriented x3 HENMT: COMMON NORMALS: normocephalic HEAD & SCALP: normocephalic Eye: COMMON NORMALS: Equal, round and reactive pupils present Neck/C-Spine: COMMON NORMALS: no JVD Chest: COMMONS NORMALS: normal inspection of the chest Resp: COMMON NORMALS: normal respiratory effort, No retractions, No use of accessory muscles and clear to auscultation bilaterally AUSCULTATION: clear to auscultation bilaterally Cardio: COMMON NORMALS: no JVD, regular rate, regular rhythm, S1 normal heart sound present and S2 normal heart sound present RATE: regular rate RHYTHM: regular rhythm HEART SOUNDS: S1 normal heart sound present and S2 normal heart sound present GI: COMMON NORMALS: Normal to inspection, nondistended, normoactive bowel sounds present, Soft to palpation, non-tender, No hepatosplenomegaly present, no masses and no bruits PALPATION: Yes Soft to palpation and Yes No hepatosplenomegaly present : OTHER: Lin catheter in place Extremity: COMMON NORMALS: capillary refill normal and no pedal edema Neuro: COMMON NORMALS: patient oriented x3 Psych: COMMON NORMALS: mental status grossly normal Urinary Catheter Management: Lin: Cath Placed During This Visit: yes Reason for Continuing Indwelling Catheter: Acute Urinary Retention or Obstruction Urinary Catheter Date of Insertion: 08/21/21 Data : 08/21/21 03:16 08/21/21 03:16 Micro: Microbiology 08/21/21 04:13 Blood Culture - Preliminary Blood SPECIMEN COLLECTED 08/21/21 04:13 Blood Culture - Preliminary Blood SPECIMEN COLLECTED A&P Assessment and plan (1) ESDRAS (acute kidney injury): Status: Acute (2) UTI (urinary tract infection): Status: Acute (3) BPH (benign prostatic hyperplasia): Status: Acute (4) Acute retention of urine: Status: Acute (5) Hypoxemia: Status: Acute Plan Post renal azotemia secondary to BPH -Creatinine 1.9 -Continue gentle IV hydration -Monitor urine output, creatinine Acute urinary tract infection -Continue Zosyn Acute urinary retention secondary to BPH, continue Lin, will require discharge with Lin for follow-up with oncology as outpatient Hypoxia requiring 3 L, will do chest x-ray, Covid testing, flu testing, BNP, troponin series CAD status post stenting x1, continue to monitor, no chest pain complaints History of CVA for right-sided weakness, PT OT History of DVT, off anticoagulation Full code Lovenox for DVT prophylaxis Attestations Medical Necessity Statement*: Patient requires hospitalization, outpatient with observation, acute urinary retention, UTI, ESDRAS Coding Level of Care Code Acute Boiler Shop Mechanic for Chg Fwd History Comprehensive Exam Comprehensive Medical Decision Making Moderate Complexity Diagnoses ESDRAS (acute kidney injury) N17.9 UTI (urinary tract infection) N39.0 BPH (benign prostatic hyperplasia) N40.0 Acute retention of urine R33.8 Hypoxemia R09.02 Time Spent (min) 55
--- NOTE | 2021-08-21 12:26 | XR_ITS ---
WS: [id number] XR chest 1V portable [id number] REASON FOR EXAM: hypoxia FINDINGS: The chest is unchanged compared to the examination of 07/31/2027 22. Current examination is also relat ively unchanged compared to a study of 10/09/2018. There is elevation of the right hemidiaphragm. There are chronic irregular interstitial lung opacities in both lower lung joya. There is increased retrocardiac density on the left. Likely this is related to hiatal hernia or other bowel interposition. Less likely thoracoabdominal aneurysm. XR/XR chest 1V portable [id number] IMPRESSION: Stable abnormal chest without acute abnormality.
[2021-08-21 13:06] LABS: Estmated Average Glucose 143; Hemoglobin A1C 6.6 % (4.0-6.0)
[2021-08-21 14:12] LABS: Troponin(5th) Baseline 67 ng/L (0-15)
[2021-08-21 14:20] LABS: NT Pro B Type Natriuretic Pept 212 pg/mL (0-450); Procalcitonin 0.15 ng/mL (0-0.5)
--- NOTE | 2021-08-21 14:27 | ECG_ITS ---
[facility] Test Date: 2021-08-21 Pat Name: Pablo Jalloh Department: Room: 277 Gender: Male Wireless Sales Consultant: : 1935 Requested By: Nico Phipps Order Number: [id number] Madalyn MD: eTssy Robles M.D. 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 [id number]
[2021-08-21 14:33] LABS: C Reactive Protein 84.3 mg/L (0.0-4.9)
[2021-08-21 16:00] VITALS: BP 124/70; PULSE 94; RESP 18; TEMP 36.7; O2SAT 94
[2021-08-21 16:42] LABS: Adenovirus Not Detected (NOT DETECT); Chlamydia Pneumoniae Not Detected (NOT DETECT); Coronavirus 229E,HKU1,NL63,OC4 Not Detected (NOT DETECT); Human Metapneumovirus Not Detected (NOT DETECT); Human Rhinovirus/Enterovirus Not Detected (NOT DETECT); Influenza A Not Detected (NOT DETECT); Influenza A H1 Not Detected (NOT DETECT); Influenza A H1-2009 Not Detected (NOT DETECT); Influenza A H3 Not Detected (NOT DETECT); Influenza B Not Detected (NOT DETECT); Mycoplasma Pneumoniae Not Detected (NOT DETECT); Parainfluenza Virus Type 1 Not Detected (NOT DETECT); Parainfluenza Virus Type 2 Not Detected (NOT DETECT); Parainfluenza Virus Type 3 Not Detected (NOT DETECT); Parainfluenza Virus Type 4 Not Detected (NOT DETECT); Respiratory Syncytial Virus A Not Detected (NOT DETECT); Respiratory Syncytial Virus B Not Detected (NOT DETECT); SARS-COV-2 Not Detected (NOT DETECT)
[2021-08-21 16:54] LABS: Results from Genmark
--- NOTE | 2021-08-21 18:27 | ECG_ITS ---
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 Measurements Intervals [place] Rate: 93 P: 18 MT: 239 QRS: 43 QRSD: 95 T: 21 QT: 297 QTc: 370 Interpretive Statements SINUS RHYTHM WITH FIRST DEGREE AV BLOCK Compared to ECG 08/21/2021 15:07:23 Sinus tachycardia no longer present Electronically Signed On 08-22-2021 18:38:11 CHILD CARE ASSOCIATE TEACHER by Vu Montalvo M.D. [id number]
[2021-08-21 20:00] VITALS: BP 128/72; PULSE 92; RESP 18; TEMP 36.8; O2SAT 95
[2021-08-21 20:18] LABS: Troponin 5 6HR 69.69 ng/L (0-15)
[2021-08-21 20:19] LABS: Troponin 5 6HR Delta 2.69 ng/L (0-12)
[2021-08-21] MEDS: trazodone 50 mg Tablet PO (20:37)
[2021-08-21 21:25] LABS: Glucose Point of Care 133 mg/dL (70-110)
[2021-08-22] VITALS: BP 166/78; PULSE 100; RESP 18; O2SAT 92
[2021-08-22 04:00] VITALS: BP 154/72; PULSE 100; RESP 18; O2SAT 91
[2021-08-22] MEDS: piperacillin-tazobactam 3.375 GM in sodium chloride 0.9% (plus) 50 ML IV ×3 (04:05→18:40)
[2021-08-22 06:03] LABS: Basophils # 0.1 10^3/uL (0.0-0.1); Basophils % 0.9 %; Eosinophils # 0.2 10^3/uL (0.0-0.8); Eosinophils % 2.2 %; Hematocrit 44.3 % (42.0-52.0); Hemoglobin 14.5 g/dL (11.7-16.6); Lymphocytes # 1.4 10^3/uL (0.8-4.8); Lymphocytes % 21.1 %; Mean Corpuscular HGB Conc 32.7 g/dL (30.0-36.0); Mean Corpuscular Hemoglobin 30.3 pg (28.0-34.0); Mean Corpuscular Volume 92.7 fl (80-94); Mean Platelet Volume 11.6 fL (7.4-10.4); Monocytes # 0.8 10^3/uL (0.2-0.9); Monocytes % 12.1 %; Neutrophils # 4.29 10^3/uL (1.8-7.7); Neutrophils % 63.1 %; Nucleated Red Blood Cells % 0 %; Platelet Count 204 10^3/cmm (130-400); Red Blood Count 4.78 10^6/uL (4.1-5.3); Red Cell Distribution Width 12.6 % (12.1-15.1); White Blood Count 6.8 10^3/uL (4.0-10.0)
[2021-08-22 06:14] LABS: INR 1.19 (0.8-1.2)
[2021-08-22 06:40] LABS: NT Pro B Type Natriuretic Pept 378 pg/mL (0-450); Procalcitonin 0.14 ng/mL (0-0.5)
[2021-08-22 06:51] LABS: Blood Urea Nitrogen 22 mg/dL (8-23); C Reactive Protein 69.2 mg/L (0.0-4.9); Calcium 9.3 mg/dL (8.5-10.5); Carbon Dioxide 22 mmol/L (22-29); Chloride 104 mmol/L (98-107); Glucose 118 mg/dL (65-115); Phosphorus 2.2 mg/dL (2.5-4.5); Potassium 4.4 mmol/L (3.5-5.1)
[2021-08-22 07:42] LABS: Anion Gap 16.4 (5-19); Creatine Phosphokinase 346 U/L (39-308); Osmolality Calculated 290 mOsm/kg (285-295); Sodium 138 mmol/L (136-145)
[2021-08-22 07:43] VITALS: BP 166/90; PULSE 102; RESP 15; TEMP 37.1; O2SAT 94
--- NOTE | 2021-08-22 08:17 | USCV_ITS ---
Pablo Jalloh Age: 86 Gender: M : 1935 Exam Date: 08/22/2021 09:25 Ordering Phys: Nico Phipps MD Technologist: Luis Townsend [place] [facility] [place]: NSTEMI BP: 166 / 90 HR: 98 Rhythm: Sinus Technical Quality: Adequate MEASUREMENTS (Male / Female) Normal Values 2D ECHO LV Diastolic Diameter PLAX 3.0 cm 4.2 - 5.9 / 3.9 - 5.3 cm LV Systolic Diameter PLAX 1.8 cm IVS Diastolic Thickness 1.3 cm 0.6 - 1.0 / 0.6 - 0.9 cm IVS Systolic Thickness 1.9 cm LVPW Diastolic Thickness 1.8 cm 0.6 - 1.0 / 0.6 - 0.9 cm LVPW Systolic Thickness 1.9 cm LVOT Diameter 2.0 cm LV Ejection Fraction 2D Teich 69.6 % LV Ejection Fraction MOD 2C 73.9 % LV Ejection Fraction 2C AL 73.6 % LA Diameter 3.9 cm LA Width 3.7 cm LA Height 4.0 cm RA Width 2.9 cm RA Height 4.3 cm Aorta at Sinotubular Diameter 2.4 cm M-MODE Aortic Annulus Diameter 3.3 cm LA Ao Ratio MM 0.9 DOPPLER AV Peak Velocity 152.0 cm/s LVOT Peak Velocity 120.0 cm/s AV Area Cont Eq vti 3.1 cm squared AV Area Cont Eq pk 2.6 cm squared RV Acceleration Time 0.1 s RV Ejection Time 0.3 s RV AcT/ET 0.2 FINDINGS Left Ventricle Normal left ventricular cavity size and systolic function. Mildly increased left ventricular wall thickness. Left ventricular ejection fraction is estimated at 65%. No diagnostic regional wall motion abnormality. Right Ventricle Normal right ventricular size and systolic function. RVSP could not be calculated due to incomplete tricuspid regurgitation velocity profile. Right Atrium Normal right atrial size. Left Atrium Normal left atrial size. Mitral Valve Mildly thickened mitral valve. No mitral valve stenosis. Trace mitral valve regurgitation. Aortic Valve Aortic valve not well visualized. No aortic valve stenosis. No aortic valve regurgitation. Tricuspid Valve Structurally normal tricuspid valve. Trace tricuspid valve regurgitation. Pulmonic Valve Pulmonic valve not well visualized. Pericardium No pericardial effusion. Aorta Normal size aortic root and proximal ascending aorta. CONCLUSIONS 1. Normal left ventricular cavity size and systolic function. Mildly increased left ventricular wall thickness. Left ventricular ejection fraction is estimated at 65%. No diagnostic regional wall motion abnormality. 2. Normal right ventricular size and systolic function. 3. No significant valvular abnormality. 4. There may not have been any significant change when compared to previous study dated 03/07/2016. Tessy Robles MD (Electronically Signed) Final Date: 22 August 2021 13:00 S
--- NOTE | 2021-08-22 09:49 | PC.CHAP ---
Pastoral Care Encounter/Spiritual Assessment Type of Contact [] Declined warehouse guard visit [] Patient/Family/Request visit [] Outpatient visit [] Follow-up visit [] Physician referral [] Code/Alert [x] Routine visit [] Staff referral [] Actively dying [] Patient sleeping [] Family support [] [] Out of room [] Palliative care [] [x] Receiving care in room [] Pre-surgical visit [] Trauma [] Long length of stay [] ICU visit [] Other: Relational/Emotional Strength [] Patient feels connected with others/family/visitors/staff [] Distress [] Loneliness/isolation [] Abandonment Spirituality of Patient [] Person of [place] [] Attends Alevism of their [place] [] Believes in Prayer [] Reads Bible or Restorationism materials [] There are Spiritual issues to be addressed Stripper Color Interventions [] Prayer [] Active listening [] Non-anxious presence [] Spiritual/emotional support [] Crisis/trauma care [] Spiritual counseling [] Bereavement support [] Provided bereavement packet [] Provided Bible/devotional materials [] Provided toy/stuffed animal, coloring book to patient or family member [] Provided Communion [] Anointing/[place] [] Salvation [x] Completed spiritual assessment [] Other: Impact on Illness or Injury [] Angry [] Fearful [] Anxious [] Often cries [] Exhaustion [] Unable to work [] Unable to attend scientology [] Unable to walk/stand [] Unable to read [] Unable to drive [] Unable to eat/drink [] Unable to sleep [] Unable to be with family [] Patient intubated [] Other: Summary Time spent with patient
[2021-08-22] MEDS: sodium chloride 0.9% 1,000 ML 75 ML IV (10:47)
[2021-08-22] MEDS: enoxaparin 30 mg/0.3 mL Syringe SUBCUT (10:48)
[2021-08-22 11:39] LABS: Glucose Point of Care 163 mg/dL (70-110)
[2021-08-22 12:00] VITALS: BP 131/73; PULSE 98; RESP 17; O2SAT 90
[2021-08-22] MEDS: amlodipine 10 mg Tablet PO (14:03)
[2021-08-22] MEDS: aspirin 81 mg EC Tablet PO (14:04)
[2021-08-22 16:00] VITALS: BP 122/67; PULSE 91; RESP 19; TEMP 37; O2SAT 92
[2021-08-22] MEDS: acetaminophen 325 mg Tablet 650 MG PO (17:08)
--- NOTE | 2021-08-22 18:33 | PM.PN ---
Subjective Subjective: Interval history: Patient was seen this morning, afebrile overnight, no fevers, chills, nausea, vomiting, is a bit bothered by the Lin catheter, does report intermittent chest pain, no shortness of breath, Vitals/I&O/Wt Last Vital Signs Temp 98.6 F 08/22/21 16:00 Pulse 91 08/22/21 16:00 Resp 19 H 08/22/21 16:00 BP 122/67 08/22/21 16:00 Pulse Ox 92 08/22/21 16:00 08/22/21 08/22/21 08/22/21 06:59 14:59 22:59 Intake Total 1450 / 1450 50 / 1500 Output Total 1080 / 2430 1150 / 1150 Balance -1080 / -1405 300 / 300 50 / 350 Weight last 48 hrs Weight 102.512 kg Weight 104.326 kg Physical Exam Const: COMMON NORMALS: no acute distress and patient oriented x3 Neck/C-Spine: COMMON NORMALS: no JVD Resp: COMMON NORMALS: normal respiratory effort, No retractions, No use of accessory muscles and clear to auscultation bilaterally AUSCULTATION: clear to auscultation bilaterally Cardio: COMMON NORMALS: no JVD, regular rate, regular rhythm, S1 normal heart sound present and S2 normal heart sound present RATE: regular rate RHYTHM: regular rhythm HEART SOUNDS: S1 normal heart sound present and S2 normal heart sound present GI: COMMON NORMALS: Normal to inspection, nondistended, normoactive bowel sounds present, Soft to palpation, non-tender, No hepatosplenomegaly present, no masses and no bruits PALPATION: Yes Soft to palpation and Yes No hepatosplenomegaly present Extremity: COMMON NORMALS: no pedal edema Neuro: COMMON NORMALS: patient oriented x3 Psych: COMMON NORMALS: mental status grossly normal Urinary Catheter Management: Lin: Cath Placed During This Visit: yes Reason for Continuing Indwelling Catheter: Acute Urinary Retention or Obstruction Urinary Catheter Date of Insertion: 08/21/21 Data : 08/22/21 04:56 08/22/21 04:56 Micro: Microbiology 08/20/21 23:48 Urine Culture - Preliminary Urine,Clean Catch Gram Negative Rods 08/21/21 04:13 Blood Culture - Preliminary Blood NEGATIVE TO DATE 08/21/21 04:13 Blood Culture - Preliminary Blood NEGATIVE TO DATE A&P Assessment and plan (1) ESDRAS (acute kidney injury): Status: Acute (2) UTI (urinary tract infection): Status: Acute (3) BPH (benign prostatic hyperplasia): Status: Acute (4) Acute retention of urine: Status: Acute (5) Hypoxemia: Status: Acute Plan Post renal azotemia secondary to BPH -Creatinine 1.1, CPK over 300 -Continue gentle IV hydration -Monitor urine output, creatinine Acute urinary tract infection -Continue Zosyn Acute urinary retention secondary to BPH, continue Lin, will require discharge with Lin for follow-up with oncology as outpatient Hypoxia requiring 3 L, will do chest x-ray no focal pneumonia, Covid testing negative, flu testing negative NSTEMI, intermittent chest pain complaints, 6-hour troponin 69.6 9, no significant delta troponin, serial EKGs, troponins, cardiac echocardiogram continue aspirin, statin CAD status post stenting x1, continue to monitor, no chest pain complaints History of CVA for right-sided weakness, PT OT History of DVT, off anticoagulation Full code Lovenox for DVT prophylaxis Attestations Medical Necessity Statement*: Patient requires hospitalization for UTI, NSTEMI, acute urinary retention, UTI Coding Level of Care Code Acute Bushing And Broach Operator for [facility] Fwd Diagnoses ESDRAS (acute kidney injury) N17.9 UTI (urinary tract infection) N39.0 BPH (benign prostatic hyperplasia) N40.0 Acute retention of urine R33.8 Hypoxemia R09.02
[2021-08-22 20:00] VITALS: BP 122/66; PULSE 86; RESP 16; TEMP 36.8; O2SAT 91
[2021-08-22] MEDS: trazodone 50 mg Tablet PO (20:39)
[2021-08-23] VITALS: BP 128/68; PULSE 91; RESP 16; TEMP 36.9; O2SAT 95
[2021-08-23 04:00] VITALS: BP 131/74; PULSE 92; RESP 18; TEMP 36.8; O2SAT 92
[2021-08-23] MEDS: piperacillin-tazobactam 3.375 GM in sodium chloride 0.9% (plus) 50 ML IV ×3 (04:23→21:18)
[2021-08-23] MEDS: enoxaparin 30 mg/0.3 mL Syringe SUBCUT (06:30)
[2021-08-23] MEDS: sodium chloride 0.9% 1,000 ML 75 ML IV (06:30)
[2021-08-23 06:39] LABS: Basophils # 0.1 10^3/uL (0.0-0.1); Basophils % 0.7 %; Eosinophils # 0.2 10^3/uL (0.0-0.8); Eosinophils % 2.4 %; Hematocrit 43.2 % (42.0-52.0); Hemoglobin 13.8 g/dL (11.7-16.6); Lymphocytes # 1.6 10^3/uL (0.8-4.8); Lymphocytes % 24.1 %; Mean Corpuscular HGB Conc 31.9 g/dL (30.0-36.0); Mean Corpuscular Hemoglobin 29.7 pg (28.0-34.0); Mean Corpuscular Volume 92.9 fl (80-94); Mean Platelet Volume 11.5 fL (7.4-10.4); Monocytes # 0.8 10^3/uL (0.2-0.9); Monocytes % 11.4 %; Neutrophils # 4.06 10^3/uL (1.8-7.7); Nucleated Red Blood Cells % 0 %; Platelet Count 191 10^3/cmm (130-400); Red Blood Count 4.65 10^6/uL (4.1-5.3); Red Cell Distribution Width 12.7 % (12.1-15.1); White Blood Count 6.7 10^3/uL (4.0-10.0)
[2021-08-23 06:44] LABS: INR 1.23 (0.8-1.2)
[2021-08-23 06:48] LABS: Glucose Point of Care 105 mg/dL (70-110)
[2021-08-23 06:57] LABS: C Reactive Protein 35.7 mg/L (0.0-4.9); Phosphorus 2.1 mg/dL (2.5-4.5)
[2021-08-23 06:58] LABS: Blood Urea Nitrogen 18 mg/dL (8-23); Calcium 8.3 mg/dL (8.5-10.5); Carbon Dioxide 26 mmol/L (22-29); Chloride 106 mmol/L (98-107); Glucose 109 mg/dL (65-115); Osmolality Calculated 292 mOsm/kg (285-295); Sodium 140 mmol/L (136-145)
[2021-08-23 07:16] LABS: NT Pro B Type Natriuretic Pept 406 pg/mL (0-450)
[2021-08-23 07:27] LABS: Creatine Phosphokinase 167 U/L (39-308)
--- NOTE | 2021-08-23 07:58 | CT_ITS ---
WS: [id number] CTA OF THE CHEST WITH PULMONARY EMBOLISM PROTOCOL TECHNIQUE: High-resolution contrast enhanced CTA of the chest with coronal and sagittal reformatted i mages with pulmonary embolism protocol. MIP images are also reviewed. CLINICAL INFORMATION: hypoxia, requiring 2L, nstemi, COMPARISON: None. DLP: 553.[address] scans at [facility] use at least one of these dose optimization techniques: automated e xposure control; mA and/or kV adjustment per patient size (includes targeted exams where dose is matc hed to clinical indication); or iterative reconstruction. FINDINGS: Proximal main pulmonary arteries are normal. Normal segmental and subsegmental pulmonary arteries. No evidence of pulmonary embolus. Elevation RIGHT hemidiaphragm with volume loss RIGHT lower lobe. Moderate chronic emphysematous changes. No focal pneumonia or pleural fluid. Subsegmental atelectasis RIGHT lower lobe. Aortic calcification. Coronary calcification. Adrenal glands are normal. RIGHT upper pole renal cyst partially visualized. Small esophageal hiatal hernia. Splenic granulomas. Atrophic changes thoracic spine. Cardiomegaly. CT/CT angio chest PE protcl [id number] IMPRESSION: 1. No evidence for pulmonary embolus. Proximal main pulmonary arteries are nor mal. 2. Volume loss RIGHT lower lobe with subsegmental atelectasis RIGHT lung base. LEFT lung is well aerated. 3. No focal pneumonia or significant pleural fluid. 4. Normal caliber thoracic aorta. 5. No mediastinal or hilar lymphadenopathy. 6. No other acute findings.
[2021-08-23 08:32] VITALS: BP 154/82; PULSE 95; RESP 16; TEMP 37.1; O2SAT 91
[2021-08-23] MEDS: iohexol 350 mg/mL 100 mL Btl IV (09:00)
[2021-08-23] MEDS: aspirin 81 mg EC Tablet PO (09:37)
[2021-08-23] MEDS: atorvastatin 40 mg Tablet 10 MG PO (09:37)
[2021-08-23] MEDS: pantoprazole DR 40 mg Tablet PO (09:37)
[2021-08-23] MEDS: amlodipine 10 mg Tablet PO (09:38)
[2021-08-23 11:22] LABS: Glucose Point of Care 112 mg/dL (70-110)
[2021-08-23 12:00] VITALS: BP 116/58; PULSE 83; RESP 16; TEMP 36.9; O2SAT 93
--- NOTE | 2021-08-23 15:04 | P.PN_ITS ---
Subjective Subjective: Interval history: Patient was seen this morning, he tells me that he is not ready to leave the hospital, he feels tired, short of breath, he is on 2 L, he tells me that his home oxygen does not work, he has not been using oxygen at home, the battery in his home oxygen machine has not been working, in addition he tells me that he has not paid for his electric bill, he thinks he does not have electricity or he might be shut off Vitals/I&O/Wt Last Vital Signs Temp 98.5 F 08/23/21 12:00 Pulse 83 08/23/21 12:00 Resp 16 08/23/21 12:00 BP 116/58 08/23/21 12:00 Pulse Ox 93 08/23/21 12:00 08/23/21 08/23/21 08/23/21 06:59 14:59 22:59 Intake Total 1000 / 2550 170 / 170 Output Total 450 / 1600 700 / 700 Balance 550 / 950 -530 / -530 Physical Exam Const: COMMON NORMALS: no acute distress and patient oriented x3 Resp: COMMON NORMALS: normal respiratory effort, No retractions, No use of accessory muscles and clear to auscultation bilaterally AUSCULTATION: clear to auscultation bilaterally Cardio: COMMON NORMALS: regular rate, regular rhythm, S1 normal heart sound present and S2 normal heart sound present RATE: regular rate RHYTHM: regular rhythm HEART SOUNDS: S1 normal heart sound present and S2 normal heart sound present GI: COMMON NORMALS: Normal to inspection, nondistended, normoactive bowel sounds present, Soft to palpation, non-tender and No hepatosplenomegaly present PALPATION: Yes Soft to palpation and Yes No hepatosplenomegaly present Extremity: COMMON NORMALS: no pedal edema Neuro: COMMON NORMALS: patient oriented x3 Psych: COMMON NORMALS: mental status grossly normal Urinary Catheter Management: Lin: Cath Placed During This Visit: yes Reason for Continuing Indwelling Catheter: Acute Urinary Retention or Obstruction Urinary Catheter Date of Insertion: 08/21/21 Data : 08/23/21 05:39 08/23/21 05:39 Micro: Microbiology 08/20/21 23:48 Urine Culture - Final Urine,Clean Catch Pseudomonas aeruginosa A&P Assessment and plan (1) ESDRAS (acute kidney injury): Status: Acute (2) UTI (urinary tract infection): Status: Acute (3) BPH (benign prostatic hyperplasia): Status: Acute (4) Acute retention of urine: Status: Acute (5) Hypoxemia: Status: Acute Plan Post renal azotemia secondary to BPH -Creatinine 1.0 -Stop IV hydration -Monitor urine output, creatinine Acute urinary tract infection -Continue Zosyn Acute urinary retention secondary to BPH, continue Lin, will require discharge with Lin for follow-up with urology as outpatient Hypoxia requiring 2 L, given elevated troponins, will do CT angiogram to evaluate for possible pulmonary emboli Covid testing negative, flu testing negative NSTEMI, intermittent chest pain complaints, 6-hour troponin 69.6 9, no significant delta troponin, serial EKGs, troponins, cardiac echocardiogram continue aspirin, statin CAD status post stenting x1, continue to monitor, no chest pain complaints History of CVA for right-sided weakness, PT OT History of DVT, off anticoagulation Full code Lovenox for DVT prophylaxis Attestations Medical Necessity Statement*: Patient requires hospitalization for shortness of breath, hypoxia, UTI Coding Level of Care Code Acute Skilled Nursing Professional for g Fwd Diagnoses ESDRAS (acute kidney injury) N17.9 UTI (urinary tract infection) N39.0 BPH (benign prostatic hyperplasia) N40.0 Acute retention of urine R33.8 Hypoxemia R09.02
[2021-08-23 16:00] VITALS: BP 115/63; PULSE 91; RESP 17; TEMP 37.1; O2SAT 95
[2021-08-23 17:28] LABS: Glucose Point of Care 135 mg/dL (70-110)
[2021-08-23 20:00] VITALS: BP 136/77; PULSE 96; RESP 18; TEMP 36.7; O2SAT 92
[2021-08-23 21:06] LABS: Glucose Point of Care 290 mg/dL (70-110)
[2021-08-23] MEDS: trazodone 50 mg Tablet PO (21:17)
[2021-08-24] VITALS: BP 125/66; PULSE 83; RESP 17; TEMP 36.9; O2SAT 94
[2021-08-24 04:00] VITALS: BP 138/72; PULSE 91; RESP 18; TEMP 36.9; O2SAT 90
[2021-08-24] MEDS: piperacillin-tazobactam 3.375 GM in sodium chloride 0.9% (plus) 50 ML IV ×2 (05:42→14:07)
[2021-08-24 06:20] LABS: Glucose Point of Care 139 mg/dL (70-110)
[2021-08-24 06:35] LABS: Basophils # 0.1 10^3/uL (0.0-0.1); Eosinophils # 0.2 10^3/uL (0.0-0.8); Eosinophils % 2.4 %; Hematocrit 45.9 % (42.0-52.0); Hemoglobin 14.7 g/dL (11.7-16.6); Lymphocytes # 1.7 10^3/uL (0.8-4.8); Lymphocytes % 21.4 %; Mean Corpuscular Volume 93.7 fl (80-94); Mean Platelet Volume 11.1 fL (7.4-10.4); Monocytes # 0.8 10^3/uL (0.2-0.9); Monocytes % 10.4 %; Neutrophils # 5.01 10^3/uL (1.8-7.7); Neutrophils % 64.3 %; Nucleated Red Blood Cells % 0 %; Platelet Count 206 10^3/cmm (130-400); Red Cell Distribution Width 12.5 % (12.1-15.1); White Blood Count 7.8 10^3/uL (4.0-10.0)
[2021-08-24 06:46] LABS: Anion Gap 13.1 (5-19); Blood Urea Nitrogen 14 mg/dL (8-23); Calcium 8.7 mg/dL (8.5-10.5); Carbon Dioxide 26 mmol/L (22-29); Chloride 104 mmol/L (98-107); Creatinine Clr Calc Pharmacy 76.5209; Glucose 121 mg/dL (65-115); Osmolality Calculated 290 mOsm/kg (285-295); Potassium 4.1 mmol/L (3.5-5.1); Sodium 139 mmol/L (136-145)
[2021-08-24 06:58] LABS: C Reactive Protein 20.7 mg/L (0.0-4.9); Phosphorus 2.3 mg/dL (2.5-4.5)
[2021-08-24 08:00] VITALS: BP 149/75; PULSE 90; RESP 18; TEMP 37.2; O2SAT 90
[2021-08-24] MEDS: enoxaparin 30 mg/0.3 mL Syringe SUBCUT (08:08)
[2021-08-24] MEDS: aspirin 81 mg EC Tablet PO (08:12)
[2021-08-24] MEDS: amlodipine 10 mg Tablet PO (08:12)
[2021-08-24] MEDS: pantoprazole DR 40 mg Tablet PO (08:13)
[2021-08-24 12:00] VITALS: BP 124/70; PULSE 86; RESP 18; TEMP 37.1; O2SAT 93
[2021-08-24] MEDS: insulin lispro 100 unit/1 mL SUBCUT (12:15)
--- NOTE | 2021-08-24 12:52 | PC.SOCIAL ---
Pg 2 IMM Explained to pt Pg 2 IMM. No questions voiced. Provided pt a copy. Initialed, dated, & timed a copy & placed in chart.
--- NOTE | 2021-08-24 13:06 | P.DS_ITS ---
Discharge Providers Date of Admission: 08/21/21 06:10 Date of Discharge: August 24, 2021 Attending Provider at Admission: Will Roa MD Attending Provider at Discharge: Nico Phipps MD Primary Care Provider: Vitor Carpenter MD Diagnoses at Discharge Discharge Diagnosis (1) ESDRAS (acute kidney injury): Status: Acute (2) UTI (urinary tract infection): Status: Acute (3) BPH (benign prostatic hyperplasia): Status: Acute (4) Acute retention of urine: Status: Acute (5) Hypoxemia: Status: Acute Reason for Visit Reason for Visit: URINE PROBLEM Hospital Course Hospital Course Pablo Jalloh is a 86 year old male with a past medical history of CAD status post stenting x1, history of 5 CVAs, residual right-sided weakness, uses a walker, has assistance at home, hypertension, history of DVT has been on Coumadin and IVC filter in the past, diet-controlled diabetes, BPH, who presents [facility] due to dysuria, and inability to urinate. Patient was admitted to [facility] for acute urinary retention secondary to BPH with urinary tract infection, required Lin catheter placement, antibiotic therapy. Patient clinically improved, will be discharged with a Lin catheter in place with close follow-up with Dr. Carpenter as outpatient. For UTI, Pseudomonas UTI, completed antibiotic therapy as outpatient Patient had elevated troponins during his hospitalization, complains of intermittent chest pain, no significant delta troponin, no EKG changes, cardiac echocardiogram showed no significant wall motion abnormalities, EF of 65%, discharged on aspirin, statin with close follow-up with cardiology as outpatient Patient had a CT angiogram to evaluate for pulmonary emboli, which was unremarkable for pulmonary emboli does require 2 L on discharge, CT of the chest did show Volume loss RIGHT lower lobe with subsegmental atelectasis RIGHT lung base. LEFT lung is well aerated. Will have patient follow-up with pulmonary as outpatient for consideration of bronchoscopy Physical Exam Const: COMMON NORMALS: no acute distress and patient oriented x3 Resp: COMMON NORMALS: normal respiratory effort, No retractions, No use of accessory muscles and clear to auscultation bilaterally AUSCULTATION: clear to auscultation bilaterally Cardio: COMMON NORMALS: regular rate, regular rhythm, S1 normal heart sound present and S2 normal heart sound present RATE: regular rate RHYTHM: regular rhythm HEART SOUNDS: S1 normal heart sound present and S2 normal heart sound present GI: COMMON NORMALS: Normal to inspection, nondistended, normoactive bowel sounds present, Soft to palpation, non-tender and No hepatosplenomegaly present PALPATION: Yes Soft to palpation and Yes No hepatosplenomegaly present Extremity: COMMON NORMALS: no pedal edema Neuro: COMMON NORMALS: patient oriented x3 Psych: COMMON NORMALS: mental status grossly normal Urinary Catheter Management: Lin: Cath Placed During This Visit: yes Reason for Continuing Indwelling Catheter: Acute Urinary Retention or Obstruction Urinary Catheter Date of Insertion: 08/21/21 Discharge Data Studies Completed and Pending Completed Studies During Hospitalization Category Date Time Status CT abdomen pelvis wo con [id number] Urgent Cat Scan 08/21/21 03:[address] angio chest PE protcl [id number] Routine Cat Scan 08/23/21 07:58 Completed XR chest 1V portable [id number] Routine Exams 08/21/21 12:26 Completed CV. echo complete* [id number] Routine Ultrasound 08/22/21 08:17 Completed Pending at discharge Category Date Time Status Blood Culture Stat Lab 08/21/21 04:13 Results Radiology Impressions Abdomen/Pelvis CT 08/21/21 03:52 IMPRESSION: 1. Mild left hydronephrosis, without associated urolithiasis. 2. Lin catheter in the decompressed bladder with bladder wall thickening and infiltration of perivesicular fat. 3. Additional findings as described above. COMMENTS: Consistent with the [employer]'s Incidental Findings Committee white paper (J Am Niraj Radiol 2018): Any incidental renal lesion less than 1 cm or classified as too small to characterize, or any incidental cystic renal lesion characterized as simple-appearing, is likely benign. No follow-up imaging is recommended for these lesions per consensus recommendations based on imaging criteria. Chest X-Ray 08/21/21 12:26 IMPRESSION: Stable abnormal chest without acute abnormality. Chest CTA 08/23/21 07:58 IMPRESSION: 1. No evidence for pulmonary embolus. Proximal main pulmonary arteries are normal. 2. Volume loss RIGHT lower lobe with subsegmental atelectasis RIGHT lung base. LEFT lung is well aerated. 3. No focal pneumonia or significant pleural fluid. 4. Normal caliber thoracic aorta. 5. No mediastinal or hilar lymphadenopathy. 6. No other acute findings. Laboratory Results WBC 7.8 10^3/uL (4.0-10.0) 08/24/21 06:00 RBC 4.90 10^6/uL (4.1-5.3) 08/24/21 06:00 Hgb 14.7 g/dL (11.7-16.6) 08/24/21 06:00 Hct 45.9 % (42.0-52.0) 08/24/21 06:00 MCV 93.7 fl (80-94) 08/24/21 06:00 MCH 30.0 pg (28.0-34.0) 08/24/21 06:00 MCHC 32.0 g/dL (30.0-36.0) 08/24/21 06:00 RDW 12.5 % (12.1-15.1) 08/24/21 06:00 Plt Count 206 10^3/cmm (130-400) 08/24/21 06:00 MPV 11.1 fL (7.4-10.4) H 08/24/21 06:00 Neut % (Auto) 64.3 % 08/24/21 06:00 Lymph % (Auto) 21.4 % 08/24/21 06:00 [place] % (Auto) 10.4 % 08/24/21 06:00 Eos % (Auto) 2.4 % 08/24/21 06:00 Baso % (Auto) 1.0 % 08/24/21 06:00 Neut # (Auto) 5.01 10^3/uL (1.8-7.7) 08/24/21 06:00 Lymph # (Auto) 1.7 10^3/uL (0.8-4.8) 08/24/21 06:00 [place] # (Auto) 0.8 10^3/uL (0.2-0.9) 08/24/21 06:00 Eos # (Auto) 0.2 10^3/uL (0.0-0.8) 08/24/21 06:00 Baso # (Auto) 0.1 10^3/uL (0.0-0.1) 08/24/21 06:00 Nucleated RBC % (auto) 0 % 08/24/21 06:00 Nucleated RBCs # 0.0 /100WBC 08/24/21 06:00 PT 15.80 SECONDS (12.1-14.9) H 08/23/21 05:39 INR 1.23 (0.8-1.2) H 08/23/21 05:39 Sodium 139 mmol/L (136-145) 08/24/21 06:00 Potassium 4.1 mmol/L (3.5-5.1) 08/24/21 06:00 Chloride 104 mmol/L (98-107) 08/24/21 06:00 Carbon Dioxide 26 mmol/L (22-29) 08/24/21 06:00 Anion Gap 13.1 (5-19) 08/24/21 06:00 BUN 14 mg/dL (8-23) 08/24/21 06:00 Creatinine 0.9 mg/dL (0.7-1.2) 08/24/21 06:00 GFR Calculation Not Reportable 08/24/21 06:00 Glucose 121 mg/dL (65-115) H 08/24/21 06:00 POC Glucose 139 mg/dL (70-110) H 08/24/21 06:12 Estimat Average Glucose 143 08/21/21 03:16 Hemoglobin A1c 6.6 % (4.0-6.0) H 08/21/21 03:16 Calculated Osmolality 290 mOsm/kg (285-295) 08/24/21 06:00 Lactic Acid 1.1 mmol/L (0.5-2.2) 08/21/21 07:50 Calcium 8.7 mg/dL (8.5-10.5) 08/24/21 06:00 Phosphorus 2.3 mg/dL (2.5-4.5) L 08/24/21 06:00 Magnesium 2.0 mg/dL (1.7-2.3) 08/24/21 06:00 Total Bilirubin 0.6 mg/dL (0.15-1.2) 08/21/21 03:16 AST 15 U/L (0-40) 08/21/21 03:16 ALT 13 U/L (0-41) 08/21/21 03:16 Alkaline Phosphatase 92 IU/L (40-130) 08/21/21 03:16 Creatine Kinase 167 U/L (39-308) 08/23/21 05:39 Troponin T Baseline 67 ng/L (0-15) H 08/21/21 13:00 Troponin T 120 Minute 71.00 ng/L (0-15) H 08/21/21 14:54 Delta Troponin T 4.00 ABS# (0-10) 08/21/21 14:54 Troponin T Hi Sens 6Hr 69.69 ng/L (0-15) H 08/21/21 19:06 Troponin T Hi Sens 6Hr Delta 2.69 ng/L (0-12) 08/21/21 19:06 C-Reactive Protein 20.7 mg/L (0.0-4.9) H 08/24/21 06:00 NT-Pro-B Natriuret Pep 406 pg/mL (0-450) 08/23/21 05:39 Total Protein 7.2 g/dL (6.6-8.7) 08/21/21 03:16 Albumin 3.9 g/dL (3.5-5.2) 08/21/21 03:16 Globulin 3.3 g/dL (1.3-4.6) 08/21/21 03:16 Procalcitonin 0.10 ng/mL (0-0.5) 08/23/21 05:39 Urine Color Yellow (Yellow) 08/20/21 23:48 Urine Appearance Hazy (CLEAR) A 08/20/21 23:48 Urine pH 5 (5-7) 08/20/21 23:48 Ur Specific [place] 1.020 (1.005-1.030) 08/20/21 23:48 Urine Protein 2+ (Negative) H 08/20/21 23:48 Urine Glucose (UA) Norm (Normal) 08/20/21 23:48 Urine Ketones Negative (Negative) 08/20/21 23:48 Urine Blood 3+ (Negative) H 08/20/21 23:48 Urine Nitrate Negative (Negative) 08/20/21 23:48 Urine Bilirubin Neg (Negative) 08/20/21 23:48 Urine Urobilinogen Norm mg/dL (Negative) 08/20/21 23:48 Ur Leukocyte Esterase 2+ (Negative) H 08/20/21 23:48 Urine RBC 0-4 /hpf (0-2) H 08/20/21 23:48 Urine WBC Too numerous to cnt /hpf (0-5) H 08/20/21 23:48 Ur Squamous Epith Cells 0-4 /hpf (0-5) H 08/20/21 23:48 Amorphous Sediment Not Reportable 08/20/21 23:48 Urine Bacteria 3+ /hpf (NONE) H 08/20/21 23:48 Nasal Influ A H1 2009 PCR Not detected (NOT DETECT) 08/21/21 14:50 Coronavirus 229E (PCR) Not detected (NOT DETECT) 08/21/21 14:50 Influenza A (H1) PCR Not detected (NOT DETECT) 08/21/21 14:50 Influenza A (H3) PCR Not detected (NOT DETECT) 08/21/21 14:50 Influenza Type A (PCR) Not detected (NOT DETECT) 08/21/21 14:50 Influenza Type B (PCR) Not detected (NOT DETECT) 08/21/21 14:50 SARS-CoV-2 (PCR) Not detected (NOT DETECT) 08/21/21 14:50 Vitals Last Vital Signs Temp 98.9 F 08/24/21 08:00 Pulse 90 08/24/21 08:00 Resp 18 08/24/21 08:00 BP 149/75 08/24/21 08:00 Pulse Ox 90 08/24/21 08:00 Discharge Plan Discharge Patient Disposition: Home Condition: Stable Prescriptions: New aspirin 81 mg Tablet,Delayed Release (Dr/Ec) 81 mg PO DAILY 30 Days Qty: 30 0RF Continued clotrimazole [Antifungal (clotrimazole)] 1 % cream 1 applic topical BID 28 Days Qty: 45 0RF trazodone 50 mg tablet 50 mg PO BEDTIME 0RF atorvastatin 10 mg tablet 10 mg PO DAILY 0RF amlodipine 10 mg tablet 10 mg PO DAILY 0RF omeprazole 20 mg capsule,delayed release(DR/EC) 20 mg PO DAILY 0RF furosemide 20 mg tablet 20 mg PO DAILY 0RF lisinopril 40 mg tablet 40 mg PO DAILY 0RF Discharge Orders: Discharge Order (Routine); Ordered 08/24/21 Ordered By: Nico Phipps Referrals: AleerMarcio MD [Physician] - 1 week Vitor Carpenter MD [Primary Care Provider] - 4-7 days Ismael Browning MD [Physician] - 1 month Discharge Diet: Cardiac Discharge Activity: Resume usual activity Patient Instructions: Opioid Safety Activity Restrictions/Additional Instructions: -Follow-up with Dr. Carpenter, for Lin catheter removal -Follow-up with cardiology -Use oxygen as prescribed Discharge Attestations Time Spent in Discharge Care*: less than 30 min Quality Metrics Clinical Quality Measures [ No reported AMI, CVA or VTE this stay] Coding Level of Care Code Acute Chg FW DC note Diagnoses ESDRAS (acute kidney injury) N17.9 UTI (urinary tract infection) N39.0 BPH (benign prostatic hyperplasia) N40.0 Acute retention of urine R33.8 Hypoxemia R09.02
[2021-08-24] MEDS: atorvastatin 40 mg Tablet 20 MG PO (14:07)
[2021-08-24 15:07] VITALS: BP 142/75; PULSE 90; RESP 18; TEMP 37.1; O2SAT 92
[2021-08-24 20:00] VITALS: BP 116/89; PULSE 77; RESP 17; TEMP 36.9; O2SAT 93
[2021-08-24 21:01] LABS: Glucose Point of Care 150 mg/dL (70-110)
[2021-08-24 21:02] LABS: Glucose Point of Care 136 mg/dL (70-110)
--- NOTE | 2021-08-25 00:19 | PC.NURSE ---
Patient was transferred over to EMS stretcher with EMS transport team. Patient left the floor with all belongings, including home oxygen and EMS at 2335.
[2021-08-25 00:20] VITALS: BP 116/89; PULSE 77; RESP 17; TEMP 36.9; O2SAT 93
== END 2021-08-24 23:35 | disposition home or self-care (01) | DRG 682 ==
LOC: ER 08-21 04:39 → ER IP 08-21 06:11 → MEDSURG 08-21 06:49
PROVIDERS: Physician Assistant; Admitting Provider Internal Medicine; Emergency Provider Emergency Medicine; PCP Urology; Visit Provider Family Medicine
DX: N17.9 Acute kidney failure, unspecified (principal); I21.A1 Myocardial infarction type 2; I69.951 Hemiplegia and hemiparesis following unspecified cerebrovascular disease affecting right dominant side; N39.0 Urinary tract infection, site not specified; J98.11 Atelectasis; N40.1 Benign prostatic hyperplasia with lower urinary tract symptoms; R33.8 Other retention of urine; Z91.19 Patient's noncompliance with other medical treatment and regimen; E11.9 Type 2 diabetes mellitus without complications; Z86.718 Personal history of other venous thrombosis and embolism; I10 Essential (primary) hypertension; I25.10 Atherosclerotic heart disease of native coronary artery without angina pectoris; Z95.5 Presence of coronary angioplasty implant and graft; R31.9 Hematuria, unspecified; N13.30 Unspecified hydronephrosis; Z95.828 Presence of other vascular implants and grafts; B96.5 Pseudomonas (aeruginosa) (mallei) (pseudomallei) as the cause of diseases classified elsewhere
CPT/HCPCS: 36415; 36416; 51702; 51798; 71045; 71275; 74176; 80048; 80053; 81001; 81003; 82550; 82962; 83036; 83605; 83735; 83880; 84100; 84145; 84484; 85025; 85610; 86140; 87040; 87077; 87086; 87186; 87631; 87635; 93005; 93306; 96372; J1650; J1815; J2543; J7030; J7040; Q9967

== ENCOUNTER 2023-04-17 15:37 | Emergency (ER) | payer MEDICARE, MEDICAID, SELFPAY ==
[2023-04-17 15:42] VITALS: BP 143/70; PULSE 92; RESP 16; TEMP 36.6; O2SAT 97
--- NOTE | 2023-04-17 15:50 | ED_ITS ---
HPI - General Adult General: Chief complaint: Psychiatric Symptoms Stated complaint: depression Time Seen by Provider: 04/17/23 15:38 Source: patient Mode of arrival: ambulatory History of Present Illness: 88-year-old male who presents to the emergency room complaining of generalized depression. He tells me upset because one of his caregivers told large amount of money from him. He vehemently denies any suicidal or homicidal ideation. No previous hospitalizations for mental health diagnosis. Associated symptoms: Reports rash; Deny chest pain, confusion, cough, diaphoresis, decreased appetite, dyspnea, fevers/chills, headache(s), malaise, nausea, palpitations, short of breath, syn cope, vomiting or weakness Treatments prior to arrival: none Review of Systems Const: Denies: malaise or diaphoresis ENMT: Denies: throat pain, ear or mastoid pain, nasal discharge or nasal congestion Card: Denies: chest pain, palpitations or syncope Resp: Denies: dyspnea GI: Denies: nausea or vomiting : Denies: flank pain, dysuria, urinary frequency or urinary urgency Skin/Breast: Reports: rash Neuro: Denies: headache(s) or confusion PFSH ED PFSH: Medical History Acute right-sided weakness BPH (benign prostatic hyperplasia) CVA (cerebral vascular accident) History of diet-controlled diabetes History of DVT (deep vein thrombosis) Hypertension Hypoxemia No pertinent family history On home oxygen therapy Surgical History History of angioplasty Family History Father , AT 71 Parkinson's disease Mother , AT 93 Old age Social History Smoking and tobacco status: never smoked Alcohol intake: never Substance/Drug Use: never Marital status: / Current occupational status: retired Physical Exam Const: GENERAL APPEARANCE: cooperative and comfortable ORIE NTATION/CONSCIOUSNESS: Yes awake, Yes oriented to person, Yes oriented to place and Yes oriented to time HENMT: COMMON NORMALS: normocephalic, atraumatic and hearing grossly normal bilaterally HEAD & SCALP: normocephalic and atraumatic Resp: COMMON NORMALS: normal respiratory effort, No retractions, No use of accessory muscles and clear to auscultation bilaterally AUSCULTATION: clear to auscultation bilaterally Cardio: COMMON NORMALS: regular rate, regular rhythm and No murmurs present (Cardio) RATE: regular rate RHYTHM: regular rhythm GI: COMMON NORMALS: Soft to palpation and No hepatosplenomegaly present AUSCULTATION: Yes normoactive bowel sounds PALPATION: Yes Soft to palpation, No Tenderness to palpation present (GI), No Guarding due to palpation present (GI) and Yes No hepatosplenomegaly present Extremity: COMMON NORMALS: normal to inspection, capillary refill normal, no clubbing, cyanosis or edema, no calf tenderness and no pedal edema Neuro: SENSORIUM/ORIENTATION: Yes oriented to person, Yes oriented to place and Yes oriented to time Skin: COMMON NORMALS: no rashes or lesions noted GENERAL SKIN EXAM: no rashes or lesions noted Course Vital Signs: Vital signs: Vital Signs Temperature 97.8 F 04/17/23 15:42 Pulse Rate 93 04/17/23 17:30 Respiratory Rate 16 04/17/23 15:42 Blood Pressure 123/59 04/17/23 17:30 Pulse Oximetry 91 04/17/23 17:30 Oxygen Delivery Me thod Room Air 04/17/23 17:30 MDM - General Adult Medical Decision Making Patient is adamant he is not suicidal. His did recently he states he is not afraid of dying and sometimes welcomes a thought however he is not actively think of doing anything to harm himself. Of significance on his labs today his creatinine is elevated recommend that he stop the lisinopril and instead change to Toprol. Reevaluate blood pressure within the next week with his primary care and repeat a BMP. Medical Records I reviewed the patient's medical records. Lab Data I reviewed the patient's lab results. 04/17/23 15:52 04/17/23 15:52 Laboratory Results WBC 10.14 10^3/uL (3.29-11.43) 04/17/23 15:52 RBC 5.78 10^6/uL (3.85-5.65) H 04/17/23 15:52 Hgb 17.00 g/dL (11.27-16.99) H 04/17/23 15:52 Hct 51.6 % (37-53) 04/17/23 15:52 MCV 89.3 fl (82-101) 04/17/23 15:52 MCH 29.4 pg (27-33) 04/17/23 15:52 MCHC 32.9 g/dL (30-55) 04/17/23 15:52 RDW 13.0 % (12.1-15.1) 04/17/23 15:52 Plt Count 180 10^3/cmm (157-399) 04/17/23 15:52 MPV 10.5 fL (7.4-10.4) H 04/17/23 15:52 Neut % (Auto) 69.0 % 04/17/23 15:52 Lymph % (Auto) 17.4 % 04/17/23 15:52 [place] % (Auto) 8.7 % 04/17/23 15:52 Eos % (Auto) 3.6 % 04/17/23 15:52 Baso % (Auto) 0.7 % 04/17/23 15:52 Neut # (Auto) 7.01 10^3/uL (1.8-7.7) 04/17/23 15:52 Lymph # (Auto) 1.8 10^3/uL (0.8-4.8) 04/17/23 15:52 [place] # (Auto) 0.9 10^3/uL (0.2-0.9) 04/17/23 15:52 Eos # (Auto) 0.4 10^3/uL (0.0-0.8) 04/17/23 15:52 Baso # (Auto) 0.1 10^3/uL (0.0-0.1) 04/17/23 15:52 Nucleated RBC % (auto) 0 % 04/17/23 15:52 Nucleated RBCs # 0.0 /100WBC 04/17/23 15:52 Sodium 140 mmol/L (136-145) 04/17/23 15:52 Potassium 4.7 mmol/L (3.5-5.1) 04/17/23 15:52 Chloride 100 mmol/L (98-107) 04/17/23 15:52 Carbon Dioxide 27 mmol/L (22-29) 04/17/23 15:52 Anion Gap 17.7 (5-19) 04/17/23 15:52 BUN 56 mg/dL (8-23) H 04/17/23 15:52 Creatinine 2.2 mg/dL (0.7-1.2) H 04/17/23 15:52 GFR Calculation Not Reportable 04/17/23 15:52 Glucose 157 mg/dL (65-115) H 04/17/23 15:52 Calculated Osmolality 309 mOsm/kg (285-295) H 04/17/23 15:52 Calcium 9.5 mg/dL (8.5-10.5) 04/17/23 15:52 Total Bilirubin 0.4 mg/dL (0.15-1.2) 04/17/23 15:52 AST 10 U/L (0-40) 04/17/23 15:52 ALT 8 U/L (0-41) 04/17/23 15:52 Alkaline Phosphatase 90 U/L (40-130) 04/17/23 15:52 Total Protein 7.5 g/dL (6.6-8.7) 04/17/23 15:52 Albumin 4.1 g/dL (3.5-5.2) 04/17/23 15:52 Globulin 3.4 g/dL (1.3-4.6) 04/17/23 15:52 TSH 0.81 uIU/mL (0.27-4.20) 04/17/23 15:52 Salicylates < 0.3 mg/dL (3-10) L 04/17/23 15:52 Acetaminophen < 5.0 ug/mL (10-30) L 04/17/23 15:52 Ethyl Alcohol < 10 mg/dL (0-10) 04/17/23 15:52 SARS-CoV-2 Ag (Rapid) negative (Negative) 04/17/23 16:37 No radiology studies performed this visit Discharge Plan Discharge Patient Disposition: Home Clinical Impression: Depression, Elevated serum creatinine Condition: Stable Prescriptions: New Toprol XL 25 mg tablet extended release 24 hr 25 mg PO DAILY Qty: 30 0RF Discontinued lisinopril 40 mg tablet 40 mg PO DAILY No Action tamsulosin 0.4 mg capsule 0.4 mg PO .at bedtime Qty: 30 12RF ciprofloxacin HCl 500 mg tablet 500 mg PO BID Qty: 28 0RF docusate sodium [Dulcolax Stool Softener (dss)] 100 mg capsule 100 mg PO DAILY PRN amlodipine 10 mg tablet 10 mg PO DAILY trazodone 50 mg tablet 50 mg PO BEDTIME PRN Discharge Orders: Discharge ED (Routine); Ordered 04/17/23 Ordered By: Fredrick Garcia Discharge Diet: Usual diet Discharge Activity: Resume usual activity Patient Instructions: Opioid Safety, Pain Management Activity Restrictions/Additional Instructions: Follow-up with your primary care provider. Coding Level of Care Code ED [employer] for [employer]
[2023-04-17 15:59] LABS: Basophils # 0.1 10^3/uL (0.0-0.1); Basophils % 0.7 %; Eosinophils # 0.4 10^3/uL (0.0-0.8); Eosinophils % 3.6 %; Hematocrit 51.6 % (37-53); Lymphocytes # 1.8 10^3/uL (0.8-4.8); Lymphocytes % 17.4 %; Mean Corpuscular HGB Conc 32.9 g/dL (30-55); Mean Corpuscular Hemoglobin 29.4 pg (27-33); Mean Corpuscular Volume 89.3 fl (82-101); Mean Platelet Volume 10.5 fL (7.4-10.4); Monocytes # 0.9 10^3/uL (0.2-0.9); Monocytes % 8.7 %; Neutrophils # 7.01 10^3/uL (1.8-7.7); Nucleated Red Blood Cells % 0 %; Platelet Count 180 10^3/cmm (157-399); Red Blood Count 5.78 10^6/uL (3.85-5.65); White Blood Count 10.14 10^3/uL (3.29-11.43)
--- NOTE | 2023-04-17 16:04 | PC.PHAR ---
pt unable to verify medications-pt states he takes 7 medications but doesnt know what they are-pt states he has a home health nurse but not sure with who-called emilie [phone] per kyle said will fax med list-then kyle called back and spoke to farhat states the pt doesnt have a medication list compiled-[facility] states they have only filled nystop on 04/03/23-fluconazole 150mg one tab on 03/26/23 and augmetin 875-125mg 1 tab q12h filled 03/25/23 10d/s-called kyle back from [facility] she states they are trying to get it approved from the state for them to set up his meds for the pt -states the pt did have caregiver but states the caregiver is no longer there states [facility] was only approved for nail care for the pt-pts Dr is Dr.Joseph Farris [phone]-called drs office spoke to casa states his pharmacy is [facility] states they have amlodipine 10mg daily-trazodone 50mg hs-lisinopril 40mg daily-lasix 20mg daily-tylenol 325mg take 650mg q6h prn and nystop powder-no answer when calling [facility] -
--- NOTE | 2023-04-17 16:05 | PC.NURSE ---
PER CAREGIVER THAT WAS REPORTED TO BY HOME HEALTH NURSE REPORTS PT LAYING DOWN IN HOME, PT STATED I DO NOT WANT TO LIVE ANYMORE. THIS PERSON ALSO REPORT THAT PT HAS NOT BEEN EATING WELL.
[2023-04-17 16:30] VITALS: BP 133/67; PULSE 97; O2SAT 91
[2023-04-17 16:32] LABS: Alanine Aminotransferase 8 U/L (0-41); Albumin Level 4.1 g/dL (3.5-5.2); Alkaline Phosphatase 90 U/L (40-130); Anion Gap 17.7 (5-19); Aspartate Amino Transferase 10 U/L (0-40); Blood Urea Nitrogen 56 mg/dL (8-23); Calcium 9.5 mg/dL (8.5-10.5); Carbon Dioxide 27 mmol/L (22-29); Chloride 100 mmol/L (98-107); Globulin 3.4 g/dL (1.3-4.6); Glucose 157 mg/dL (65-115); Osmolality Calculated 309 mOsm/kg (285-295); Potassium 4.7 mmol/L (3.5-5.1); Sodium 140 mmol/L (136-145); Thyroid Stimulating Hormone 0.81 uIU/mL (0.27-4.20); Total Bilirubin 0.4 mg/dL (0.15-1.2); Total Protein 7.5 g/dL (6.6-8.7)
[2023-04-17 16:35] LABS: Acetaminophen < 5.0 ug/mL (10-30); Alcohol Level < 10 mg/dL (0-10); Salicylate < 0.3 mg/dL (3-10)
[2023-04-17 17:30] VITALS: BP 123/59; PULSE 93; O2SAT 91
[2023-04-17] MEDS: sodium chloride 0.9% 1,000 ML 999 ML IV (17:32)
[2023-04-17 17:39] LABS: SARS Covid-2 Antigen negative (Negative)
== END 2023-04-17 19:45 | disposition home or self-care (01) ==
PROVIDERS: Emergency Provider Family Medicine; PCP Urology
DX: F32.A Depression, unspecified (principal); R74.8 Abnormal levels of other serum enzymes; Z20.822 Contact with and (suspected) exposure to COVID-19; Z86.73 Personal history of transient ischemic attack (TIA), and cerebral infarction without residual deficits; I10 Essential (primary) hypertension; E11.9 Type 2 diabetes mellitus without complications
CPT/HCPCS: 36415; 80053; 80307; 84443; 85025; 87426; 99284; J7030